=== PATIENT | female | born 1945 | race Caucasian/White ===

== ENCOUNTER 2024-08-22 21:35 | Inpatient (IN) | payer OTHER, SELFPAY ==
[2024-08-22] VITALS (12 sets, daily range): BP systolic 86–120; BP diastolic 46–70; BMI 21.5; BMI 22.1
[2024-08-22 18:27] LABS: INR 1.98
[2024-08-22 18:38] LABS: ALT (SGPT) 17 U/L (0-35); AST (SGOT) 29 U/L (14-36); Albumin 2.5 g/dl (3.5-5.0); Alkaline Phosphatase 81 U/L (38-126); Blood Urea Nitrogen 75 mg/dl (7-17); Calcium 7.9 mg/dl (8.4-10.2); Carbon Dioxide 13 mmol/L (22-30); Chloride 111 mmol/L (98-107); Estimated Creatinine Clearance 14 ml/min; Glucose 114 mg/dl (70-99); Sodium 138 mmol/L (135-145); Total Bilirubin 0.7 mg/dl (0.2-1.3); Total Protein 5.6 g/dl (6.3-8.2); eGFR 19.08
[2024-08-22 18:39] LABS: % Basophils 0.6 % (0-2); % Immature Granulocytes 6.6 % (0-0.5); % Lymphocytes 5.2 % (20.5-51.1); % Monocytes 4.6 % (1.7-9.3); Absolute Basophils 0.2 10^3/uL (0-0.2); Absolute Immature Granulocytes 1.7 10^3/uL (0-0.05); Absolute Lymphocytes 1.4 10^3/uL (1.2-3.4); Absolute Monocytes 1.2 10^3/uL (0.1-0.6); Absolute Neutrophils 21.3 10^3/uL (1.4-6.5); Hematocrit 27.6 % (37.0-47.0); Hemoglobin 8.5 g/dL (12.0-16.0); Mean Corp Hgb Conc. 30.8 g/dL (33.0-37.0); Mean Corpuscular Hgb 25.1 pg (27.0-31.0); Mean Corpuscular Volume 81.7 fL (81.0-99.0); Mean Platelet Volume 10.9 fL (7.4-10.4); Nucleated Red Blood Cells % 0 %; Platelet Count 599 10^3/uL (130-400); Red Blood Cell Count 3.38 10^6/uL (4.20-5.40); Red Cell Dist. Width 17.7 % (11.5-14.5); White Blood Cell Count 25.7 10^3/uL (4.8-10.8)
[2024-08-22 18:41] LABS: Magnesium 1.4 mg/dl (1.6-2.3)
[2024-08-22] MEDS: NSS 500 IV ×2 (19:14→20:06)
[2024-08-22] MEDS: CARDIZEM 125 IV (19:23)
[2024-08-22 19:56] LABS: Creatine Phosphokinase 25 U/L (30-135)
[2024-08-22] MEDS: ZOSYN 100 IV (20:06)
[2024-08-22 20:10] LABS: Lactic Acid 1.7 mmol/L (0.7-2.0)
--- NOTE | 2024-08-22 20:13 | ED.GENMED ---
History of Present Illness
General
Chief Complaint: Heart Rate Problem
Source: patient and family
Time Seen by Provider: 08/22/24 18:09
History of Present Illness
History of Present Illness:
78-year-old female who presents after she fell at home. Daughter states that she had been in [place] and recently has been in [facility] for extended period of time. Patient was told at some point she did have atrial fibrillation but did not
have any follow-up or nothing else was done because they told her that she converted out of it. She is unsure if she has had any other episodes as she otherwise feels well. Today she fell and daughter found her on the floor. Patient does admit
she has been coughing for some time. No obvious fevers. No hemoptysis. Patient states that her walker just fell over and she lost her balance and fell. Denies any injuries or pain. Denies shortness of breath. Does feel her heart fluttering at
times.
Past History
Past History
ED Past Medical History: Arrthythmia (Remote history reported but no follow-up) and HTN
Phy Exam
Physical Exam
Physical Exam:
CONSTITUTIONAL Patient alert and oriented to person, place and time. Well-appearing. Vital signs reviewed.
HEAD atraumatic, normocephalic.
EYES eyelids normal to inspection, Extraocular muscles intact, Conjunctiva normal, Sclera normal.
NECK normal range of motion, Trachea midline, no jugular venous distention. No midline tenderness
RESPIRATORY CHEST No respiratory distress noted, Chest expansion equal, Bilateral breath sounds clear.
CARDIOVASCULAR irregularly irregular and tachycardic. At times on telemetry monitoring heart rate goes to 160s but down to 100 abruptly but remains in atrial fibrillation.
ABDOMEN abdomen nontender, Bowel sounds normal. No distention.
BACK normal inspection, no obvious deformities
UPPER EXTREMITY range of motion normal, Motor strength normal, no cyanosis, no edema.
LOWER EXTREMITY range of motion normal, Motor strength normal, no cyanosis, no edema.
NEURO Speech normal, No focal motor deficits, Irene coma scale 15, Memory normal, Cranial Nerves intact to screening exam.
SKIN skin warm, dry, and normal in color.
Course
Orders/Labs/Results
Orders:
Orders
08/22/24 17:53
Electrocardiogram (*1) Urgent
Reason for Study: Atrial Fibrillation
EKG- Treatment ONCE
08/22/24 18:06
Complete Blood Count/With Diff Urgent
Comprehensive Metabolic Panel Urgent
Creatine Phosphokinase Urgent
Comment: ADDON
Magnesium Urgent
Comment: ADD ON
PT/INR [Prothrombin Time] Urgent
TSH Reflex To Free T4 Urgent
08/22/24 18:25
CT Head W/o Iv Contrast Urgent
Comment:
Reason For Exam: fall
0.9% Sodium Chloride 500 ml [Nss] 500 ml IV BOLUS
CR Chest - 2 Views Urgent
Comment:
Reason For Exam: cough
08/22/24 18:26
Add On- LAB Urgent
Tests Added?: TSH, Mg
Diltiazem 125 mg/125 ml Nss [Cardizem] 125 mg in 125 ml IV NOW
Initial dose in mg/hr, then titrate:: 5
Titrate to keep:: Heart rate 80-100 bpm
Titrate by mg/hr:: 5 mg/hr
Frequency of titrations (minutes):: 15
Maximum dose in mg/hr:: 15
Diltiazem HCl [Cardizem] 10 mg IV NOW STA
08/22/24 19:24
Add On- LAB Urgent
Tests Added?: cpk, Mg
Straight cath- Treatment ONCE
Urinalysis Reflex To Culture Urgent
08/22/24 19:26
0.9% Sodium Chloride 500 ml [Nss] 500 ml IV BOLUS
08/22/24 19:47
Piperacillin/Tazo 4.5 Gram [Zosyn] 4.5 gram in 100 ml IV NOW
Vancomycin [Vancocin] 1,500 mg 0.9% Sodium Chloride 500 ml [Nss] 500 ml IV NOW
08/22/24 19:50
Lactic Acid Q4H
Comment: CANCEL 2nd LACTIC ACID IF 1st LACTIC ACID IS LESS THAN 2
Blood Culture Q30M
JENA Source: Blood/Venous
Specimen Description:
Blood Culture Q30M
JENA Source: Blood/Venous
Specimen Description:
08/22/24 23:30
Lactic Acid Q4H
Comment: CANCEL 2nd LACTIC ACID IF 1st LACTIC ACID IS LESS THAN 2
Abnormal Lab Results
08/22/24
18:06
WBC 25.7 H 10^3/uL
(4.8-10.8)
RBC 3.38 L 10^6/uL
(4.20-5.40)
Hgb 8.5 L g/dL
(12.0-16.0)
Hct 27.6 L %
(37.0-47.0)
MCH 25.1 L pg
(27.0-31.0)
MCHC 30.8 L g/dL
(33.0-37.0)
RDW 17.7 H %
(11.5-14.5)
Plt Count 599 H 10^3/uL
(130-400)
MPV 10.9 H fL
(7.4-10.4)
Abs Immat Gran (auto) 1.7 H 10^3/uL
(0-0.05)
Absolute Neuts (auto) 21.3 H 10^3/uL
(1.4-6.5)
Absolute Monos (auto) 1.2 H 10^3/uL
(0.1-0.6)
Immature Gran % 6.6 H %
(0-0.5)
Neutrophils % 83.0 H %
(42.2-75.2)
Lymphocytes % 5.2 L %
(20.5-51.1)
PT 23.0 H Sec
(11.4-14.6)
Chloride 111 H mmol/L
(98-107)
Carbon Dioxide 13 L* mmol/L
(22-30)
BUN 75 H mg/dl
(7-17)
Creatinine 2.5 H mg/dL
(0.6-1.0)
Glucose 114 H mg/dl
(70-99)
Calcium 7.9 L mg/dl
(8.4-10.2)
Magnesium 1.4 L mg/dl
(1.6-2.3)
Creatine Kinase 25 L U/L
(30-135)
Total Protein 5.6 L g/dl
(6.3-8.2)
Albumin 2.5 L g/dl
(3.5-5.0)
08/22/24 18:06
08/22/24 18:06
Vital Signs
Initial and Last Documented VS:
Initial Vital Signs
Pulse Resp BP Pulse Ox
109 19 108/57 98
08/22/24 17:55 08/22/24 17:55 08/22/24 17:55 08/22/24 17:55
Last Documented Vital Signs
Temp Pulse Resp BP Pulse Ox
98.2 F 115 24 98/56 95
08/22/24 17:57 08/22/24 19:19 08/22/24 19:19 08/22/24 19:19 08/22/24 19:19
MDM/Problems Addressed
Differential Diagnosis Includes:
Fall, intracranial hemorrhage, skull fracture, electrolyte imbalance, UTI, anemia, A-fib
MDM/Problems Addressed:
Acute metabolic acidosis, acute atrial fibrillation with RVR, acute kidney injury, acute pneumonia, sepsis, hypomagnesemia, hypovolemia
*Radiology
Radiology exam reviewed: preliminary read by ED provider (Pneumonia)
*Pulse Oximetry
Patient hypoxic: no
*EKG
Interpreted by ED Provider?: Yes
Interpretation: abnormal
Rate: tachycardiac
Rhythm: a-fib
Ischemia: non-specific ST changes
*Production Staff Worker Interpretation
Rate: tachycardiac
Interpretation: abnormal
Rhythm: a-fib
*Critical Care Note
Total Time (30-74mins, 75-104mins- exclusive of procedures): 45 minutes
Data Reviewed
Source: patient and family
Prescriptions/Medications Considered But Not Given:
Consider vasopressors but continue fluids for now
Patient Management
Discussion with other providers: Hospitalist
Escalation/DeEscalation of care consider admission/obs:
78-year-old female with fall but noted to have cough and rapid A-fib. Reports that she was told in the past she had A-fib but it had resolved quickly and they did not have any follow-up. She has been in [facility] for some months and recently
moved home alone for the last couple weeks. She is on a diuretic. Creatinine noted but no old evaluations here at the hospital. Suspect she is profoundly hypovolemic. IV fluids ordered. Will slowly attempt to control rate and hope that IV
fluids also help. Chest x-ray shows pneumonia and patient is notably coughing. IV antibiotics ordered. Suspect acidosis related to infection and hypovolemia. May need anticoagulation but patient does fall frequently and this needs to be
considered
ED Attending Note
-
Portions of this chart may have been created with voice recognition software.� Occasional wrong word or��sound alike� substitutions may have occurred due to the inherent limitations of voice recognition software.
Discharge Plan
Departure
Patient Disposition: Admit
Date of Disposition: 08/22/24
Time of Disposition: 20:14
Admit to: IMU
Presentation/result/management discussed w/ accepting MD/DO: Hospitalist
Discharge Problem:
Metabolic acidosis, Pneumonia, Weakness, Anemia, Acute kidney injury, Volume depletion, Atrial fibrillation with RVR, Sepsis
Prescriptions:
No Action
metoprolol tartrate [Lopressor] 100 mg Tablet
100 mg PO BID
pantoprazole [Protonix] 20 mg Tablet,Delayed Release (Dr/Ec)
20 mg PO DAILY
hydrochlorothiazide 25 mg Tablet
25 mg PO DAILY
lisinopril 40 mg Tablet
40 mg PO DAILY
cholecalciferol (vitamin D3) [Vitamin D3] 25 mcg (1,000 unit) Tablet
25 mcg PO DAILY
Interventions
Interventions:
*Risk Screen - Suicide Last Done: 08/22/24 17:57
*General Assessment Last Done: 08/22/24 17:57
*Neglect/Abuse Screening Last Done: 08/22/24 17:57
*ED- Fall Risk Assessment Last Done: 08/22/24 17:57
*ED COVID-19 Vaccine History Last Done: 08/22/24 17:57
ED- Cardiac Assessment Last Done: 08/22/24 17:57
ED- Pulmonary Assessment Last Done: 08/22/24 17:57
Discharge Date and Time
Print Language: BOLIVIAN
--- NOTE | 2024-08-22 21:00 | HPS.HSE ---
Family Physician
-
Family Physician:
Chief Complaint
-
Fall at home
History of Present Illness
Patient is a 78y F with PMH significant for hypertension and possible isolated / remote A-Fib who presents to ED complaining of fall at home. Patient states that she was most recently hospitalized at [place] and then spent prolonged
rehabilitation stay at [facility] and then [facility]. She was discharged to home about 1 week ago and states that she has been feeling fairly well. Patient does complain of palpitations/ racing heartbeats for about 6 weeks or so. She
denies any lightheadedness / dizziness. She denies chest pain / pressure. Patient states that she would take a deep breath and then palpitations would cease.
She has also had a hacking, non-productive cough for about 6 weeks. No shortness of breath.
Patient reports that she has been drinking a lot of water; however, her appetite has been poor.
Today she was walking with her walker and her walker 'tilted' and she fell to the floor. She denies any lightheadedness, dizziness or other prodrome. She denies striking her head and denies any LOC.
Her [id number] assessed her following the fall and noted that she had a fast / racing pulse. They presented to the ED for further evaluation.
Patient was noted to be in A-Fib with rapid ventricular response with rates into the 170s at times. She was started on IV diltiazem in the ED.
At the time of my examination in the ED, patient is resting comfortably. She continues to report palpitations; although, her current pulse is in the 80s-90s.
Medical History
Past Medical History
Past Medical History: Reports Other
Additional Past Medical History:
Hypertension
GERD
Past Surgical History: Reports Other
Additional Past Surgical History:
x 2
Social History
Tobacco: Former Smoker (Quit smoking about 10 years ago. > 40 pack years total use.)
Alcohol: Occasional
Family History
Family History: Not pertinent
Allergies / Home Medications
Allergies reflects when Allergies were last updated in [employer].
Home Medications with original date entered in [employer]
Allergy/Medication List:
Allergies
Allergy/AdvReac Type Severity Reaction Status Date / Time
No Known Allergies Allergy Verified 08/22/24 18:04
Home Medications
cholecalciferol (vitamin D3) 25 mcg (1,000 unit) tablet (Vitamin D3) 25 mcg PO DAILY 08/22/24
hydrochlorothiazide 25 mg tablet 25 mg PO DAILY 08/22/24
lisinopril 40 mg tablet 40 mg PO DAILY 08/22/24
metoprolol tartrate 100 mg tablet (Lopressor) 100 mg PO BID 08/22/24
pantoprazole 20 mg tablet,delayed release (Protonix) 20 mg PO DAILY 08/22/24
Review of Systems
-
History Source: Patient
A 12 point ROS was completed and negative except as noted: Yes
Constitutional: Denies Fever, Fatigue or Chills
EENT: Denies Sore Throat
Respiratory: Reports Cough; Denies Hemoptysis or Trouble Breathing
Cardiac: Reports Palpitations; Denies Chest Pain, Diaphoresis or Syncope
Abdomen/GI: Reports Anorexia; Denies Abdominal Pain, Nausea, Vomiting or Diarrhea
: Denies Dysuria, Frequency or Flank Pain
Musculoskeletal: Denies Joint Pain or Edema
Neurological: Denies Dizzy, Headache, Weakness or Numbness
Psych: Denies Depression or Anxiety
Physical Exam
Vital Signs
Vital Signs
Temp Pulse Resp BP Pulse Ox
98.2 F 104 29 104/67 96
08/22/24 17:57 08/22/24 20:45 08/22/24 20:45 08/22/24 20:30 08/22/24 20:45
Physical Exam
General: Other (78y F in no acute distress.)
HEENT: Other (Dry MM. Neck supple. )
Respiratory: Other (Coarse breath sounds over the L base about 1/2 up. No wheezing.)
Cardiac: S1/S2 and Irregular Rhythm; No Murmur
GI: Soft, Non Tender, Non Distended and Normal Bowel Sounds
Musculoskeletal: No Clubbing, No Cyanosis and No Edema
Neuro: AO x 3
Laboratory Results
-
08/22/24 18:06
08/22/24 18:06
Laboratory Results
PT 23.0 Sec (11.4-14.6) H 08/22/24 18:06
INR 1.98 08/22/24 18:06
Lactic Acid 1.7 mmol/L (0.7-2.0) 08/22/24 19:50
Total Bilirubin 0.7 mg/dl (0.2-1.3) 08/22/24 18:06
AST 29 U/L (14-36) 08/22/24 18:06
ALT 17 U/L (0-35) 08/22/24 18:06
Alkaline Phosphatase 81 U/L (38-126) 08/22/24 18:06
Impression/Plan
-
A/P: Patient is a 78y F with PMH significant for hypertension who presents to ED complaining of fall at home and palpitations.
LLL Pneumonia
Sepsis secondary to the above
- Admit for further evaluation and treatment.
- Patient presents with tachycardia, tachypnea and leukocytosis with CXR showing dense consolidation at the posterior L base.
- Abx for coverage of CAP.
- Supportive care including IVFs, etc.
- Follow for clinical improvement.
Atrial Fibrillation with Rapid Ventricular Response
- Perhaps some remote and isolated history of A-Fib, but not a chronic issue per patient.
- Continue IV diltiazem and titrate as needed for rate control.
- Continue metoprolol, but change dose / frequency to allow for titration given low BP.
- Cardiology evaluation in the AM for additional recommendations.
- Will hold on anticoagulation initially given fall / gait issues, evaluation of anemia, etc.
Fall at Home
- Patient describes a mechanical fall without injury, head trauma, etc.
- PT / OT evaluations.
ELIGIO / CKD
Non-Gapped Metabolic Acidosis
- SCr = 2.5 with no prior values available for comparison.
- Hold ELIEL inhibitor acutely.
- IVFs as noted above.
- Follow for changes in renal function over the next 24-48 hours.
- Try to obtain [facility] for [facility].
Normocytic Anemia
- ? acuity, etiology, etc. Patient denies any gross bleeding.
- Not on any anticoagulation.
- Check iron studies, B12, etc. Heme test stools.
- Follow for changes in H&H - especially with volume expansion.
- Obtain prior records for review as noted above.
Benign Hypertension
- BP presently on the lower side - likely due to tachyarrhythmia, sepsis, etc.
- IVF support as noted above.
- Hold lisinopril, HCT, etc.
- Continue metoprolol withholding parameters / divided doses.
DVT Prophylaxis: Subcut Heparin
Code Status: DNR
[2024-08-22] MEDS: VANCOCIN 530 MG IV (21:22)
[2024-08-22] MEDS: LOPRESSOR PO (22:30)
[2024-08-22] MEDS: NSS 1000 IV (22:33)
[2024-08-22 23:05] LABS: Iron < 20 ug/dl (37-170)
[2024-08-22 23:07] LABS: Troponin I 0.149 ng/ml
[2024-08-22 23:09] LABS: Total Iron Binding Capacity 232 ug/dl (265-497)
[2024-08-22] MEDS: ROBITUSSIN 100 MG PO (23:55)
--- NOTE | 2024-08-22 23:59 | PTCARENOTE ---
pt admitted from ED, pt is AAOx3, ALUTIIQ, able to make needs known. a-fib on the monitor. cardizem gtt infusing at 5ml/hr. HR can go from 70s-120s. with any activity patient's HR goes up to 150s but does go back down with rest. 95% RA. moist
non-productive frequent cough. notified covering [employer]LLOW[employer]- PRN robitussin given per JUN. SOB on exertion and tachypneic at times. PW in place d/t patient not being able to get up or move much in bed. IV fluids infusing. troponin level drawn per order-
0.149- notified covering [employer]LLOW[employer]- no new orders at this time. no chest pain reported. pt oriented to new room, call boykin within reach, care ongoing.
[2024-08-23] VITALS (25 sets, daily range): BP systolic 96–140; BP diastolic 50–122; PULSE 81–85; O2SAT 96; BMI 21.8
[2024-08-23 00:18] LABS: Folate 11.3 ng/ml (2.76-20); Vitamin B12 337 pg/ml (239-931)
--- NOTE | 2024-08-23 02:10 | PTCARENOTE ---
pt oxygen dropping during the night. 87% RA, 4L NC applied now 94%. pt starting with wheezes, PRN neb treatment given per JUN. care ongoing.
--- NOTE | 2024-08-23 03:24 | PTCARENOTE ---
pt incontinent of loose BM, full bed change and bath given. heme test stools ordered- result heme negative at this time, documented on work list. purwick that was placed by the ED removed at this time d/t patient being incontinent of loose stools.
pt agreeable to using bedpan. care ongoing.
[2024-08-23] MEDS: LOPRESSOR PO (03:29)
[2024-08-23] MEDS: VENTOLIN NEBULES 2.5 MG INH (03:36)
[2024-08-23 03:39] LABS: Hematocrit 27.3 % (37.0-47.0); Hemoglobin 8.3 g/dL (12.0-16.0); Mean Corp Hgb Conc. 30.4 g/dL (33.0-37.0); Mean Corpuscular Hgb 25.1 pg (27.0-31.0); Mean Corpuscular Volume 82.5 fL (81.0-99.0); Mean Platelet Volume 11.1 fL (7.4-10.4); Platelet Count 544 10^3/uL (130-400); Red Blood Cell Count 3.31 10^6/uL (4.20-5.40); Red Cell Dist. Width 17.4 % (11.5-14.5)
[2024-08-23 04:03] LABS: Blood Urea Nitrogen 58 mg/dl (7-17); Calcium 6.6 mg/dl (8.4-10.2); Carbon Dioxide 12 mmol/L (22-30); Chloride 119 mmol/L (98-107); Estimated Creatinine Clearance 21 ml/min; Glucose 86 mg/dl (70-99); Potassium 3.5 mmol/L (3.5-5.1); Sodium 143 mmol/L (135-145); eGFR 30.32
[2024-08-23 04:14] LABS: Troponin I 0.159 ng/ml
[2024-08-23 04:39] LABS: Urine Albumin 2+ (Neg - Trace); Urine Bilirubin Negative (Negative); Urine Character Slightly Cloudy (Clear); Urine Color Yellow; Urine Glucose Negative (Negative); Urine Ketone Negative (Negative); Urine Leukocyte 2+ (Negative); Urine Nitrite Positive (Negative); Urine Occult Blood 2+ (Negative); Urine Specific Gravity 1.015 (<1.030); Urine Urobilinogen 1+ (Neg - 1+)
[2024-08-23] MEDS: CALCIUM GLUCONATE 100 IV (04:57)
[2024-08-23] MEDS: SODIUM BICARBONATE 50 MEQ IV (04:57)
--- NOTE | 2024-08-23 05:16 | PTCARENOTE ---
pt with critical lab values this AM- CO2-12, Ca-6.6. mag level drawn in the ED also noted to be low 1.4. notified covering CONSULTING MANAGER- amp of bicarb, IV Ca rider and IV mag rider ordered and hung per JUN.
[2024-08-23] MEDS: MAGNESIUM SULFATE 100 IV (05:46)
[2024-08-23] MEDS: ROCEPHIN 1000 MG IV (05:47)
[2024-08-23] MEDS: STERILE WATER FOR INJECTION 10 ML IV (05:47)
[2024-08-23 05:57] LABS: Urine Mucus Many
[2024-08-23 05:58] LABS: Urine Amorphous Seen; Urine Bacteria Many (Negative); Urine Squamous Cell >30 /LPF (Few); Urine White Cell >100 /HPF (0-5)
[2024-08-23 06:11] LABS: Urine Red Blood Cell >100 /HPF (0-2); Urine Urothelial Cell >30 /LPF (FEW)
--- NOTE | 2024-08-23 08:21 | W.PN.HOSP.TC ---
Today's Communication/Plan
-
Continue antibiotics, AV glo blockers, encourage PO intake
Assessment / Plan
Assessment / Plan
Physical Exam
General: Not in acute distress
HEENT: Normocephalic
Respiratory:Rhonchi bilaterally
Cardiac: S1/S2 and Irregular Rhythm
GI: Soft, Non Tender, Non Distended and Normal Bowel Sounds
Musculoskeletal: No Cyanosis and No Edema. LEFT CHEST WALL TENDER TO PALPATION.
Neuro: AAO x 3
Assessment/Plan
78y F with PMH significant for hypertension and possible isolated / remote A-Fib who presented complaining of fall at home. Patient states that she was most recently hospitalized at [place] and then spent prolonged rehabilitation stay at [facility] and then [facility]. She was discharged to home about 1 week prior to presentation and stated that she had been feeling fairly well. Patient does complain of palpitations/ racing heartbeats for about 6 weeks or so. She denied any
lightheadedness / dizziness. She denied chest pain / pressure. Patient stated that she would take a deep breath and then palpitations would cease.
She has also had a hacking, non-productive cough for about 6 weeks. No shortness of breath.
Patient reports that she has been drinking a lot of water; however, her appetite had been poor.
On the day of presentation, she was walking with her walker and her walker 'tilted' and she fell to the floor. She denied any lightheadedness, dizziness or other prodrome. She denied striking her head and denied any loss of consciousness.
Her [id number] assessed her following the fall and noted that she had a fast / racing pulse.
Patient was noted to be in A-Fib with rapid ventricular response with rates into the 170s at times. She was started on IV diltiazem in the ED.
LLL Pneumonia
Sepsis secondary to the above
Hacking, non-productive cough for about 6 weeks prior to presentation
- Patient presented with tachycardia, tachypnea and leukocytosis with CXR showing dense consolidation at the posterior left base.
- Antibiotic coverage for community acquired pneumonia
- Supportive care including IVFs, etc.
- Follow for clinical improvement.
Atrial Tachycardia (NOT A-Fib as per cardiology)
- Continue IV diltiazem and titrate as needed for rate control.
- Continue metoprolol
- Cardiology evaluation
Fall at Home
- Patient described a mechanical fall without injury, head trauma, etc.
- PT / OT evaluations.
ELIGIO / CKD
Metabolic Acidosis
- Labs are improving
- SCr = 2.5 --->1.7 with no prior values available for comparison.
- Hold LEIEL inhibitor acutely.
- IVFs as noted above.
- Follow for changes in renal function over the next 24-48 hours.
- Bladder scans protocol to monitor for urinary retention
- Try to obtain prior records from [facility] for comparison.
Normocytic Anemia
- ? acuity, etiology, etc. Patient denies any gross bleeding.
- Not on any anticoagulation.
- Iron studies suggest iron deficiency anemia -- but avoid IV iron for now given infection (started oral iron instead), B12 within normal range at 337.
- Heme test stools.
- Follow for changes in H&H - especially with volume expansion.
- Obtain prior records for review as noted above.
Benign Hypertension
- BP presently on the lower side - likely due to tachyarrhythmia, sepsis, etc.
- IVF support as noted above.
- Hold lisinopril, HCT, etc.
- Continue metoprolol withholding parameters / divided doses.
DVT Prophylaxis: Subcutaneous Heparin
Speech & Swallow: As of 08/23/24: Completed swallow eval - recommending to continue regular and thins. Thanks!
Code Status: DNR
Anticipated Discharge: 24 - 48 hours
Subjective/Interval History
-
Date of Service: August 23, 2024
Patient was seen and examined. She denied any new symptoms or complaints, except for chest wall pain tender on palpation or with moving.
Objective Data
-
Labs:
Laboratory Results
08/23/24
03:15
WBC 23.0 H
Hgb 8.3 L
Hct 27.3 L
Plt Count 544 H
Sodium 143
Potassium 3.5
Chloride 119 H
Carbon Dioxide 12 L*
BUN 58 H
Creatinine 1.7 H
Glucose 86
Calcium 6.6 L*
Vital Signs:
Vital Signs
Temp Pulse Resp BP Pulse Ox
98.1 F 93 28 106/57 96
08/23/24 07:21 08/23/24 06:00 08/23/24 06:00 08/23/24 06:00 08/23/24 06:00
I&O
08/22/24 08/23/24 08/24/24
06:59 06:59 06:59
Intake Total 200 / 200
Output Total 200 / 200
Balance 0 / 0
[2024-08-23] MEDS: VIBRAMYCIN 100 MG PO ×2 (08:35→19:27)
[2024-08-23] MEDS: HEPARIN 5000 UNITS SC ×2 (08:36→19:27)
[2024-08-23] MEDS: PROTONIX 20 MG PO (08:36)
[2024-08-23] MEDS: KCL 20 MEQ PO (08:38)
--- NOTE | 2024-08-23 08:58 | PTCARENOTE ---
Patient urinated a moderate amount of yellow urine. Per MD order, patient bladder scanned for 191. Dr. Bee made aware. Care ongoing.
--- NOTE | 2024-08-23 09:50 | PTOTSP ---
Speech Therapy Evaluation:
Pt presents with functional oropharyngeal swallow at bedside. No s/sx of aspiration across trials. No significant predisposing risk factors of dysphagia, however CXR with LLL PNA, O2 requirement increased from baseline, and WBC elevated. No hx of
PNA, dysphagia, or ST services.
Recommend:
1. Continue regular solids and thin liquids
2. Medications as tolerated
3. General aspiration and reflux precautions
4. MANAGER LSW to follow to monitor tolerance of diet and determine if pt would benefit from instrumental assessment (pending imaging), likely brief
--- NOTE | 2024-08-23 10:04 | CON.CAR ---
Addendum entered and electronically signed by Trisha Ngo MD 08/23/24 16:34:
I saw and examined the patient.
The DIVER PUMPER's note was reviewed and I agree with the note.
Comment: 78 yo female with HTN, and GERD, who presents to the ER from home after a mechanical fall. She has had recurrent falls. We are called for concern of atrial fibrillation. However EKG shows sinus rhythm with salvos of SVT. Telemetry shows
sinus with salvos of SVT. Currently she feels well without complaint. On exam she is without complaint. Lungs are clear to auscultation bilaterally regular rate and rhythm with a normal S1-S2 no murmur exams were appreciated, no lower extremity
edema appreciated.EKG as above. Overall, arrhythmia consistent with atrial tachycardia over atrial fibrillation. No indication for anticoagulation at this time. Transition diltiazem drip to diltiazem. Rates are controlled. Ongoing treatment for
pneumonia as you are. Creatinine is improving.
Patient can call the office to arrange [place] at [phone] if interested in transitioning care to our office. Otherwise the cardiology service will sign off and return as needed.
Original Note:
Consultation
Consultation Request
Date/Time Consultation Requested: 08/22/24 10:20p
Date/Time Consultation Performed: 08/23/24 9:45a
Requesting Provider: Dr. Caldwell
Performing Provider: RADHA Garcia for Dr. Ngo
Reason for Consultation: rapid Afib
Medical History
-
Chief Complaint: fall at home
History of Present Illness:
Mrs. Irving is a 78 yo female with HTN, and GERD, who presents to the ER from home after a mechanical fall. There was concern for rapid A-fib with rates in 170s in the ER started on IV diltiazem drip. She is admitted to the hospitalist service we
are consulted for rapid A-fib. EKG 08/22/2024 with sinus complexes and salvos of atrial tachycardia 113 bpm. She admits to feeling palpitations at times and thinks maybe she had Afib once before. 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
lives in [place] and would like to follow with cardiology here at [facility].
Past Medical History
Past Medical History: GERD and HTN
Past Surgical History: (x2)
Social History
Tobacco: Former Smoker (Quit 10 years ago, > 40 pack years)
Living: With Family
Family History
Family History: Reviewed & Not Pertinent
Allergies / Home Medications
Allergy/AdvReac Type Severity Reaction Status Date / Time
No Known Allergies Allergy Verified 08/22/24 18:04
�Medication �Instructions �Recorded �Confirmed �Type
cholecalciferol (vitamin D3) 25 25 mcg PO DAILY Supplement 08/22/24 08/22/24 History
mcg (1,000 unit) tablet (Vitamin
D3)
hydrochlorothiazide 25 mg tablet 25 mg PO DAILY Fluid 08/22/24 08/22/24 History
Retention/Swelling
lisinopril 40 mg tablet 40 mg PO DAILY Blood Pressure 08/22/24 08/22/24 History
metoprolol tartrate 100 mg tablet 100 mg PO BID Blood Pressure 08/22/24 08/22/24 History
(Lopressor)
pantoprazole 20 mg tablet,delayed 20 mg PO DAILY Gastrointestinal 08/22/24 08/22/24 History
release (Protonix) Issue
Review of Systems
-
History Source: Patient
All other systems: Negative unless noted
Physical Exam
Vital Signs
Temp Pulse Resp BP Pulse Ox
98.1 F 93 28 106/57 96
08/23/24 07:21 08/23/24 06:00 08/23/24 06:00 08/23/24 06:00 08/23/24 06:00
Lab Results
08/23/24 03:15
Troponin I 0.159 ng/ml H* 08/23/24 03:15
Physical Exam
General: Well Developed and No Apparent Distress
HEENT: Normocephalic and Moist Mucous Membranes
Respiratory: Rhonchi (diffuse b/l )
Cardiac: S1/S2 and Irregular Rhythm
Breast: Deferred by me
GI: Soft, Non Tender and Normal Bowel Sounds
Rectal: Deferred by Provider
Genito-urinary: No Costovertebral Tender
Musculoskeletal: No Clubbing, No Cyanosis and No Edema
Skin: Warm and Dry
Neuro: AO x 3
Psych: Calm
Impression / Plan
-
Atrial tachycardia - rapid rates, sinus rhythm/tachycardia on tele.
- Atrial tachycardia salvos on EKG with ST.
- no Afib, continue to monitor on tele.
- check EKG and echo.
- continue IV Diltiazem and Lopressor.
Possible remote Afib episode - per notes, will request records from her truck rental manager Dr. Altman.
- [id number] VASc score is 4 (female, age, HTN), with fall history unsure is she is a safe OAC candidate. now on SC Heparin.
- monitor on tele.
HTN - stable on Lopressor and IV Diltiazem, continue.
- monitor.
Non-ischemic myocardial injury - acute in the setting of rapid Afib and ELIGIO.
- Troponin trend 0.149, 0.159, trend to peak.
- check echo.
GERD - stable, continue PPI.
PNA LLL - sepsis, on ABX per hospitalist.
Fall at home - recurrent, mechanical.
- lives alone and uses a walker.
- multiple falls recently.
ELIGIO - creatinine 2.5 on admit.
- down to 1.7 today.
- unknown baseline creatinine.
Data Reviewed
-
EKG: Tracing Personally Visualized and interpreted (EKG 08/22/2024 with sinus complexes and salvos of atrial tachycardia 113 bpm)
Radiology: Report Reviewed by me (CXR: Posterior medial left lower lobe pneumonia.)
Labs: Labs Reviewed by me
Old Records: Reviewed
[2024-08-23] MEDS: NSS 1000 IV ×2 (10:19→21:03)
[2024-08-23] MEDS: LOPRESSOR 50 MG PO ×3 (10:20→20:05)
[2024-08-23] MEDS: ROBITUSSIN 100 MG PO ×2 (10:22→16:05)
[2024-08-23 10:59] LABS: ALT (SGPT) 19 U/L (0-35); AST (SGOT) 48 U/L (14-36); Albumin 2.8 g/dl (3.5-5.0); Alkaline Phosphatase 105 U/L (38-126); Blood Urea Nitrogen 56 mg/dl (7-17); Calcium 8.3 mg/dl (8.4-10.2); Carbon Dioxide 16 mmol/L (22-30); Chloride 113 mmol/L (98-107); Estimated Creatinine Clearance 23 ml/min; Glucose 143 mg/dl (70-99); Magnesium 1.7 mg/dl (1.6-2.3); Potassium 3.9 mmol/L (3.5-5.1); Sodium 142 mmol/L (135-145); Total Bilirubin 0.6 mg/dl (0.2-1.3)
[2024-08-23] MEDS: CARDIZEM CD 120 MG PO (13:42)
[2024-08-23] MEDS: FEOSOL 325 MG PO (16:05)
--- NOTE | 2024-08-23 16:08 | CM ---
Patient with Dx LLL Pneumonia, Sepsis, Atrial tachycardia, fall at home. O2 2L. Receiving IV Abx, Cardizem gtt, IVF. PT/OT; assist of 2, unsteady, recommend skilled rehab.
Met with patient, son Raz, MARK, and son Rogerio;
the patient resides alone in a first floor condo with 1 step at entrance.
She was A/O however has not been doing well for the past week, mostly lying on the couch, not eating or drinking.
She was discharged from [facility] a [facility] where she stayed for 11 months in LTC under Medicaid.
The patient did not want to be in SNF any longer so sons allowed her to return home.
Sons are arare patient fell once recently. They report she has fallen 5x in the last 2 years, fracturing her hip, spine and wrist.
Sons had [facility] caregiver [facility].
DME - RW
SNF- [facility] x2
PCP - Socorro Villalba
Pharmacy - [facility]
Spoke with [facility] Wells; the patient was discharged from SNF with referral to [facility], however she was unable to be seen as she has not seen her PCP for over 1 year.
Spoke with sons about short term rehab. Christian Crandall prefers a referral to [facility] They are not sure what to do about the LTC plans as the patient has no funds to pay for assisted living or hire an agency caregiver.
SNF referral placed.
Plan follow up SNF referral.
--- NOTE | 2024-08-23 16:34 | PTCARENOTE ---
Patient AOx3. Patient is anxious and [place]. Patient on RA with SpO2 greater than 92%. Coarse lung sounds and exp wheeze. Non-productive moist cough. PRN cough medicine given per JUN. Patient converted back to NSR and cardizem gtt turned off. BP
stable. Frequent urination. PVR's completed and charted per MD order. Patient tolerating regular diet. IVF running per order. Assist x1 with RW when OOB. Call boykin within reach, bed in lowest position, and bed of wheels locked.
[2024-08-23 17:56] LABS: Troponin I 0.129 ng/ml
[2024-08-23 20:15] LABS: Blood Urea Nitrogen 46 mg/dl (7-17); Calcium 8.2 mg/dl (8.4-10.2); Carbon Dioxide 16 mmol/L (22-30); Chloride 114 mmol/L (98-107); Estimated Creatinine Clearance 26 ml/min; Glucose 118 mg/dl (70-99); Potassium 3.9 mmol/L (3.5-5.1); Sodium 143 mmol/L (135-145); eGFR 38.27
--- NOTE | 2024-08-23 21:30 | PTCARENOTE ---
Pt received at beginning of shift resting in bed. AAOx3 but can be forgetful. [place]. VSS. SA on CM irregular. POX RA 93%. Tachypneic up to 41 does not appear to be in any acute distress. Speaks full sentences. When asleep pox down to 80's. Placed on
2L NC POX 96%. 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 Urinary frequency. Agreeable to use purewick overnight. Placed and working. Pt attempted to have BM without result. Right upper arm with red ecchymosis. Skin pale. Rest of assessment as documented. Pt
turns self in bed. Call boykin remains within reach. Will continue to monitor.
[2024-08-24] VITALS (23 sets, daily range): BP systolic 104–162; BP diastolic 47–97; BMI 22.7
[2024-08-24 03:50] LABS: % Basophils 0.6 % (0-2); % Eosinophils 1.2 % (0-6); % Immature Granulocytes 4.6 % (0-0.5); % Lymphocytes 10.6 % (20.5-51.1); % Monocytes 5.5 % (1.7-9.3); % Neutrophils 77.5 % (42.2-75.2); Absolute Basophils 0.1 10^3/uL (0-0.2); Absolute Eosinophils 0.2 10^3/uL (0-0.7); Absolute Immature Granulocytes 0.7 10^3/uL (0-0.05); Absolute Lymphocytes 1.6 10^3/uL (1.2-3.4); Absolute Monocytes 0.9 10^3/uL (0.1-0.6); Hematocrit 25.7 % (37.0-47.0); Mean Corp Hgb Conc. 31.1 g/dL (33.0-37.0); Mean Corpuscular Hgb 25.6 pg (27.0-31.0); Mean Corpuscular Volume 82.1 fL (81.0-99.0); Mean Platelet Volume 11.2 fL (7.4-10.4); Nucleated Red Blood Cells % 0 %; Platelet Count 531 10^3/uL (130-400); Red Blood Cell Count 3.13 10^6/uL (4.20-5.40); Red Cell Dist. Width 17.6 % (11.5-14.5); White Blood Cell Count 15.5 10^3/uL (4.8-10.8)
[2024-08-24 04:14] LABS: ALT (SGPT) 19 U/L (0-35); AST (SGOT) 41 U/L (14-36); Albumin 2.4 g/dl (3.5-5.0); Alkaline Phosphatase 87 U/L (38-126); Blood Urea Nitrogen 41 mg/dl (7-17); Calcium 8.1 mg/dl (8.4-10.2); Carbon Dioxide 17 mmol/L (22-30); Chloride 116 mmol/L (98-107); Estimated Creatinine Clearance 30 ml/min; Glucose 97 mg/dl (70-99); Potassium 3.8 mmol/L (3.5-5.1); Sodium 143 mmol/L (135-145); Total Bilirubin 0.4 mg/dl (0.2-1.3); Total Protein 5.4 g/dl (6.3-8.2); eGFR 46.05
[2024-08-24] MEDS: ROCEPHIN 1000 MG IV (05:14)
[2024-08-24] MEDS: LOPRESSOR 50 MG PO ×4 (05:14→21:43)
[2024-08-24] MEDS: STERILE WATER FOR INJECTION 10 ML IV (05:14)
[2024-08-24] MEDS: ROBITUSSIN 100 MG PO ×2 (05:49→10:53)
[2024-08-24] MEDS: VENTOLIN NEBULES 2.5 MG INH (06:16)
[2024-08-24] MEDS: TESSALON PERLES 100 MG PO ×2 (06:36→16:24)
--- NOTE | 2024-08-24 06:39 | PTCARENOTE ---
Pt woke up this am with intense cough, spastic, audible wheezing and sob. RT called to give pt breathing treatment. Treatment given. Robitussin given as ordered. Pt slightly better. Kenton GARCIA TT'd and made aware. Order entered for Tin Rodas
and pt received. Pt grossly incontinent large amount urine and moderate amount BM. Pt cleansed and changed. Currently resting comfortably. Call boykin remains within reach. Will continue to monitor.
[2024-08-24] MEDS: CARDIZEM CD 120 MG PO (08:02)
[2024-08-24] MEDS: PROTONIX 20 MG PO (08:02)
[2024-08-24] MEDS: VIBRAMYCIN 100 MG PO ×2 (08:02→21:43)
[2024-08-24] MEDS: HEPARIN 5000 UNITS SC ×2 (08:03→21:42)
[2024-08-24] MEDS: NSS 1000 IV (10:51)
--- NOTE | 2024-08-24 10:54 | W.PN.HOSP.TC ---
Today's Communication/Plan
-
Nebulizer ATC
Pulmonary consult IV steroid
IV Abx
Legionella test
Assessment / Plan
Assessment / Plan
Physical Exam
General: Not in acute distress
HEENT: Normocephalic
Respiratory:Rhonchi bilaterally, limited with some expiratory wheezes.
Cardiac: S1/S2 and Irregular Rhythm
GI: Soft, Non Tender, Non Distended and Normal Bowel Sounds
Musculoskeletal: No Cyanosis and No Edema.
Neuro: AAO to self and surroundings, she followed commands
Psych: anxious at times
Assessment/Plan
LLL Pneumonia
Sepsis secondary to the above
Hacking, non-productive cough for about 6 weeks prior to presentation
- Patient presented with tachycardia, tachypnea and leukocytosis with CXR showing dense consolidation at the posterior left base.
- Antibiotic coverage for community acquired pneumonia
- Supportive care including IVFs, etc.
- Follow for clinical improvement.
- Consult pulmonary
# hx of 1 PPD for years, quit 10 years ago
Suspect underlying COPD, she denies previous diagnosis and symptoms but reports taking inhalers/ seeing pulmonary in the past
Lung exam: some wheezes with limited air, will change to DuoNeb ATC, add IV steroid
Will consult pulmonary
Atrial Tachycardia (NOT A-Fib as per cardiology)
- stop IV diltiazem, change to oral Cardizem
repeat EKG today
- Continue metoprolol
- Cardiology evaluation appreciated
Fall at Home
- Patient described a mechanical fall without injury, head trauma, etc.
- PT / OT evaluations.
ELIGIO / CKD
Metabolic Acidosis
- Labs are improving
- SCr = 2.5 --->1.7 with no prior values available for comparison.
- Hold ELIEL inhibitor acutely.
- IVFs as noted above.
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
- Follow for changes in renal function over the next 24-48 hours.
- Bladder scans protocol to monitor for urinary retention
- Try to obtain prior records from [facility] for comparison.
Normocytic Anemia
- ? acuity, etiology, etc. Patient denies any gross bleeding.
- Not on any anticoagulation.
- Iron studies suggest iron deficiency anemia -- but avoid IV iron for now given infection (started oral iron instead), B12 within normal range at 337.
- Heme test stools.
- Follow for changes in H&H - especially with volume expansion.
- Obtain prior records for review as noted above.
Benign Hypertension
- BP presently on the lower side - likely due to tachyarrhythmia, sepsis, etc.
- IVF support as noted above.
- Hold lisinopril, HCT, etc.
- Continue metoprolol withholding parameters / divided doses.
DVT Prophylaxis: Subcutaneous Heparin
Speech & Swallow: As of 08/23/24: Completed swallow eval - recommending to continue regular and thins. Thanks!
Code Status: DNR
Total time spent to see the patient, examine the patient, review data and lab result, discuss treatment plan with the patient, nursing staff around 55 minutes
Anticipated Discharge: > 48 hours
Subjective/Interval History
-
Date of Service: August 24, 2024
Still cough with losse stools
Objective Data
-
Labs:
Laboratory Results
08/24/24
03:22
WBC 15.5 H
Hgb 8.0 L
Hct 25.7 L
Plt Count 531 H
Sodium 143
Potassium 3.8
Chloride 116 H
Carbon Dioxide 17 L
BUN 41 H
Creatinine 1.2 H
Glucose 97
Calcium 8.1 L
Total Bilirubin 0.4
AST 41 H
ALT 19
Alkaline Phosphatase 87
Vital Signs:
Vital Signs
Temp Pulse Resp BP Pulse Ox
97.5 F 104 20 104/91 94
08/24/24 07:50 08/24/24 09:14 08/24/24 09:00 08/24/24 09:14 08/24/24 09:00
I&O
08/23/24 08/24/24 08/25/24
06:59 06:59 06:59
Intake Total 200 / 200 2260 / 2260 480 / 480
Output Total 200 / 200 600 / 600
Balance 0 / 0 1660 / 1660 480 / 480
--- NOTE | 2024-08-24 11:01 | PTCARENOTE ---
Patient had a few minute episode of continuous coughing which led her to throw up a small parker thick amount. Patient denies feeling nauseous. Patient able to take Robitussin per MAR. Dr. España made aware. Care ongoing.
[2024-08-24] MEDS: DUONEB 3 ML INH ×3 (11:09→21:14)
[2024-08-24] MEDS: SOLU-MEDROL PF 40 MG IV (11:35)
--- NOTE | 2024-08-24 14:30 | CON.PUL ---
Consultation
Consultation Request
Date/Time Consultation Requested: 08/24/2024 - 1054
Date/Time Consultation Performed: 08/24/2024 - 1250
Requesting Provider: Dr. España
Performing Provider: Dr. Agosto
Reason for Consultation: Hypoxia/SOB/Pneumonia
Medical History
-
Chief Complaint: Found on floor
History of Present Illness:
78-year-old female with a past medical history of hypertension, vitamin D deficiency, and GERD who presents with being found down on the ground by her [id number]-wxr. Patient lives alone. When EMS arrived, her heart rate was 180 and she was
hypotensive to 70/40. Patient reportedly has a history of A-fib but is not on any medications. She had recently been hospitalized at [facility] and spent a prolonged rehabilitation stay at [facility] and then [facility]. She
says that once she got home from rehab that she became increasingly weak. She has been having racing heartbeat/palpitations for about 6 weeks or so. Denies any prior lightheadedness/dizziness. She was walking via her walker and then she tilted
and fell to the floor. She denies head trauma or loss of consciousness. Her adygzhou-pk-evq found her on the floor and noticed her fast heart rate. EKG here shows an atrial tachycardia. Her initial heart rate was as high as 176, she was afebrile
to 98.2 �F, respiratory rate 22, BP 98/64 and saturating 97% on room air. Labs showed leukocytosis to 25.7, Hb 8.5, serum bicarbonate level 13, creatinine 2.5, magnesium 1.4, iron saturation with total iron levels <20, although high ferritin levels
at 1160, CK20 5, troponin 0.149, vitamin B12 337, TSH 0.60, and urinalysis with >100 urine WBC, +2 leukocyte esterase and positive nitrites, although it was a dirty sample. Blood cultures collected. CXR showed a posteromedial left lower lobe
pneumonia. In the ER she was started on Cardizem drip, given Zosyn/vancomycin, and total of 1 L IVF with NS 0.9%. She was admitted to the IMU for further care and now pulmonary consulted for additional management/recommendations.
When I saw the patient, she was resting in bed in no acute distress, on 2 L/min nasal cannula saturating 95%. Heart rate 81, BP 132/70. She is not on home oxygen. She says she feels much better overall, although still coughing with clear mucus
production, and still hears some wheezing. She currently denies chest pain, [place], nausea, fevers or chills.
PMHx: Hypertension, GERD, suspected history of A-fib, former tobacco smoker
PSHx: x 2
Past Medical History
Past Medical History: Other (Above as per HPI)
Past Surgical History: Other (Above as per HPI)
Social History
Tobacco: Former Smoker (Quit approximately 10 years ago, with a >[id number] history)
Alcohol: Occasional
Drug: None
Personal: Single
Living: Alone
Family History
Family History: Reviewed & Not Pertinent
Allergies / Home Medications
Allergies
Allergy/AdvReac Type Severity Reaction Status Date / Time
No Known Allergies Allergy Verified 08/22/24 18:04
Home Medications
�Medication �Instructions �Recorded �Confirmed �Last Taken �Type
cholecalciferol (vitamin D3) 25 25 mcg PO DAILY Supplement 08/22/24 08/22/24 08/22/24 History
mcg (1,000 unit) tablet (Vitamin
D3)
hydrochlorothiazide 25 mg tablet 25 mg PO DAILY Fluid 08/22/24 08/22/24 08/22/24 History
Retention/Swelling
lisinopril 40 mg tablet 40 mg PO DAILY Blood Pressure 08/22/24 08/22/24 08/22/24 History
metoprolol tartrate 100 mg tablet 100 mg PO BID Blood Pressure 08/22/24 08/22/24 08/22/24 History
(Lopressor)
pantoprazole 20 mg tablet,delayed 20 mg PO DAILY Gastrointestinal 08/22/24 08/22/2408/22/25 History
release (Protonix) Issue
Review of Systems
-
History Source: Patient
All other systems: Negative unless noted
Vitals / Labs / Diagnostic Testing
Vital Signs
Temp Pulse Resp BP Pulse Ox
97.5 F 89 37 136/75 95
08/24/24 07:50 08/24/24 11:00 08/24/24 11:00 08/24/24 10:42 08/24/24 11:00
Lab Data
08/24/24 03:22
08/24/24 03:22
Microbiology
08/22/24 19:50 Blood/Venous Blood Culture - Preliminary
No Growth in 24 hours- Final report to follow
08/22/24 19:50 Blood/Venous Blood Culture - Preliminary
No Growth in 24 hours- Final report to follow
Diagnostic Testing:
Physical Exam
-
HEENT: Normocephalic and Anicteric
Cardiovascular: S1/S2 and Peripheral Edema (negative)
Respiratory: Wheeze (negative), Rales (Left base), Rhonchi (Left base) and Non-Labored Respirations
GI: Soft, Non Distended, Non Tender and Normal Bowel Sounds
Neurology: Awake, Alert and Tremors (negative)
Skin: Warm and Dry
General: Respiratory Distress (negative), Comfortable, Fever (negative) and Chills (negative)
Assessment
-
Assessment: 78-year-old female with a past medical history of hypertension, vitamin D deficiency, and GERD who presents with being found down on the ground by her dadiwigr-tz-rtd. Patient lives alone. When EMS arrived, her heart rate was 180 and
she was hypotensive to 70/40. Patient reportedly has a history of A-fib but is not on any medications. She had recently been hospitalized at [facility] and spent a prolonged rehabilitation stay at [facility] and [facility]. She says that once she got home from rehab that she became increasingly weak. She has been having racing heartbeat/palpitations for about 6 weeks or so. Denies any prior lightheadedness/dizziness. She was walking via her walker and then
she tilted and fell to the floor. She denies head trauma or loss of consciousness. Her weftodum-mv-ymj found her on the floor and noticed her fast heart rate. EKG here shows an atrial tachycardia. Her initial heart rate was as high as 176, she
was afebrile to 98.2 �F, respiratory rate 22, BP 98/64 and saturating 97% on room air. Labs showed leukocytosis to 25.7, Hb 8.5, serum bicarbonate level 13, creatinine 2.5, magnesium 1.4, iron saturation with total iron levels <20, although high
ferritin levels at 1160, CK20 5, troponin 0.149, vitamin B12 337, TSH 0.60, and urinalysis with >100 urine WBC, +2 leukocyte esterase and positive nitrites, although it was a dirty sample. Blood cultures collected. CXR showed a posteromedial left
lower lobe pneumonia. In the ER she was started on Cardizem drip, given Zosyn/vancomycin, and total of 1 L IVF with NS 0.9%. She was admitted to the IMU for further care and now pulmonary consulted for additional management/recommendations.
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
Impression:
#Left lower lobe pneumonia -suspect aspiration given that she was found on the floor
#Tachycardia due to atrial tachycardia (not due to A-fib as per cardiology)
#Acute respiratory failure with hypoxia due to pneumonia with hypoventilation/deconditioning
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
#Anemia with iron deficiency
#Leukocytosis
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
#Thrombocytosis, likely reactive
#ELIGIO
#Metabolic acidosis with preserved anion gap likely due to ELIGIO
#Elevated troponin to peaked at 0.16 on 08/23/2024
#Hypoalbuminemia
#Abnormal urinalysis however with >30 urine urothelial cells
#Former tobacco smoker
Plan:
- Patient found to have a left lower lobe pneumonia due to retrocardiac opacification seen in the posterior left base on CXR from 08/22/2024
- Suspect she may have aspirated given that she fell that same day; she may have even had this prior as she was having palpitations and racing heart for several weeks, possibly as a result of this pneumonia, but this is unclear
- I have no prior imaging to compare to assess chronicity
- Continue with ceftriaxone/Doxy s/p Vanco/Zosyn; would plan for total of 7 days antibiotics assuming she continues to clinically improve and remains afebrile for 2 days prior to stopping
- Continue to trend WBC and monitor for fevers
- Follow-up blood cultures (collected 08/22/2024 � NGTD), and urine culture (collected 08/23/2024 � NGTD); urine antigen for Legionella negative; check strep pneumoniae urine antigen
- Of note, she does have multiple right sided kidney stones & a suspected bladder stone, hence if she deteriorates then it's a possible source to consider and would consult urology in that case
- Her WBC is improving, hence believe that we do have source control
- Continue aspiration precautions; keep HOB >30-45�
- Maintain SpO2 >90-94% with supplemental O2 and wean as she tolerates
- She will need a home O2 assessment prior to discharge
- Although she says that she sometimes hears herself wheezing, I do not appreciate wheezing on exam today
- Continue DuoNebs QID with prn nebulized bronchodilators for breakthrough symptoms (not currently bronchospastic)
- Outpatient pulmonary follow-up will be arranged for full PFTs and symptom monitoring; will discharge home with prn albuterol and we can consider maintenance inhalers once I see her in office
- Maintain MAP >65
- Renally dose all medications/antibiotics
- Trend sCr and I/O, monitor UOP
- Trend serum HCO3 level
- Cardiology consulted and recs appreciated
- She currently is in normal sinus rhythm
- Continue with PO Lopressor + Cardizem
- Outpatient cardiology follow-up recommended
- Incentive spirometer encouraged q1hr while awake
- Replete electrolytes with K>4, Mg>2
- She will need PT/OT consult; fall precautions while hospitalized
- Trend H/H and transfuse if needed to keep Hb>7g/dL; keep plt>20k, unless there is concern for bleeding then keep plt>50k; platelet count should continue to improve to normal as ABx continue
- Maintain euglycemia with goal BG >100 and <180
- DVT ppx: HSQ
Code status: DNR/DNI
Pulmonary service will continue to follow along. I will arrange for outpatient pulmonary office follow-up.
Data:
CXR 08/22/2024: Posterior medial left lower lobe pneumonia. Recommend follow-up after conservative therapy to assess resolution.
Total time spent today was 58 minutes for this encounter. Time includes reviewing laboratory test/imaging results, reviewing pertinent medical records, obtaining and reviewing medical history, performing an appropriate exam, ordering medications,
tests and procedures. Time also includes documentation of this encounter, coordinating patient care and communicating with other healthcare professionals. Total time does not include separately billed tests performed on this date of service.
--- NOTE | 2024-08-24 15:50 | PTCARENOTE ---
Patient AOx3. Patient is anxious and [place]. Patient on 2L NC with SpO2 greater than 92%. Coarse lung sounds and exp wheeze. Productive moist cough. PRN cough medicine given per JUN. NSR with PAC's on monitor. BP stable. Frequent urination and soft
stools. Patient tolerating regular diet. Assist x1 with RW when OOB. Call boykin within reach, bed in lowest position, and bed of wheels locked.
[2024-08-25] VITALS (26 sets, daily range): BP systolic 117–168; BP diastolic 58–111; BMI 22.3
--- NOTE | 2024-08-25 00:15 | PTCARENOTE ---
Pt received at beginning of shift. AAOx3. [place] Able to make needs known. Using call boykin for all assistance. VSS. HR 80's-170's. SR/SA/intermittent ST. Irregular rate. Pt asymptomatic. Denies palpitations. Sleeping currently. POX 2L 93-97%. Pt
requested purewick for overnight and placed. No BM since beginning of shift. Rest of assessment as documented. Turns self in bed. Call boykin remains within reach. Will continue to monitor.
[2024-08-25] MEDS: TESSALON PERLES 100 MG PO (02:16)
[2024-08-25] MEDS: ROBITUSSIN 100 MG PO (02:57)
[2024-08-25] MEDS: VENTOLIN NEBULES 2.5 MG INH (03:05)
[2024-08-25] MEDS: LOPRESSOR 50 MG PO ×3 (05:05→20:03)
[2024-08-25] MEDS: STERILE WATER FOR INJECTION 10 ML IV (05:06)
[2024-08-25] MEDS: FLUSH (NSS) 2 FLUSH IV (05:06)
[2024-08-25] MEDS: ROCEPHIN 1000 MG IV (05:06)
[2024-08-25 05:46] LABS: ALT (SGPT) 22 U/L (0-35); AST (SGOT) 34 U/L (14-36); Albumin 2.6 g/dl (3.5-5.0); Alkaline Phosphatase 90 U/L (38-126); Blood Urea Nitrogen 27 mg/dl (7-17); Calcium 8.2 mg/dl (8.4-10.2); Carbon Dioxide 17 mmol/L (22-30); Chloride 115 mmol/L (98-107); Estimated Creatinine Clearance 40 ml/min; Glucose 117 mg/dl (70-99); Potassium 3.6 mmol/L (3.5-5.1); Sodium 144 mmol/L (135-145); Total Bilirubin 0.5 mg/dl (0.2-1.3); Total Protein 5.8 g/dl (6.3-8.2); eGFR > 60.00
[2024-08-25 05:47] LABS: Hematocrit 26.3 % (37.0-47.0); Hemoglobin 7.9 g/dL (12.0-16.0); Mean Corpuscular Hgb 24.8 pg (27.0-31.0); Mean Corpuscular Volume 82.4 fL (81.0-99.0); Mean Platelet Volume 10.8 fL (7.4-10.4); Platelet Count 579 10^3/uL (130-400); Red Blood Cell Count 3.19 10^6/uL (4.20-5.40); Red Cell Dist. Width 17.3 % (11.5-14.5); White Blood Cell Count 15.6 10^3/uL (4.8-10.8)
[2024-08-25] MEDS: DUONEB 3 ML INH ×3 (07:37→19:28)
[2024-08-25] MEDS: SOLU-MEDROL PF 20 MG IV ×2 (08:08→20:03)
[2024-08-25] MEDS: HEPARIN 5000 UNITS SC ×2 (08:09→20:04)
[2024-08-25] MEDS: VIBRAMYCIN 100 MG PO ×2 (08:09→20:03)
[2024-08-25] MEDS: PROTONIX 20 MG PO (08:09)
[2024-08-25] MEDS: CARDIZEM CD 120 MG PO ×2 (08:09→20:03)
--- NOTE | 2024-08-25 09:01 | W.PN.HOSP.TC ---
Today's Communication/Plan
-
Change to Cardizem BID
Decrease Duoneb to TID
Stop IV steroid
Can downgrade to tele/ med-surg
Assessment / Plan
Assessment / Plan
Physical Exam
General: Not in acute distress
HEENT: Normocephalic
Respiratory: Less rhonchi bilaterally, less expiratory wheezes.
Cardiac: S1/S2 and Irregular Rhythm
GI: Soft, Non Tender, Non Distended and Normal Bowel Sounds
Musculoskeletal: No Cyanosis and No Edema.
Neuro: AAO to self and surroundings, she followed commands
Psych: anxious at times
Assessment/Plan
LLL Pneumonia
Sepsis secondary to the above
Acute hypoxic respiratory failure
Hacking, non-productive cough for about 6 weeks prior to presentation
- Patient presented with tachycardia, tachypnea and leukocytosis with CXR showing dense consolidation at the posterior left base.
She looks better, she will likely need oxygen supplementation for some time
Repeat chest x ray, no worsening in LL pneumonia
c/w Rocephin and Doxy
Negative Legionella, streptococcal Ag
Negative blood culture
Appreciate pulmonary help
# hx of 1 PPD for years, quit 10 years ago
Suspect underlying COPD, pulmonary HTN
she denies previous diagnosis and symptoms but reported taking inhalers/ seeing pulmonary in the past
Changed to DuoNeb ATC, will reduce to TID, another day of IV steroid
# Multiple Atrial Tachycardia (NOT A-Fib as per cardiology)
- stopped IV diltiazem, changed to oral Cardizem, will increase to BID dose to better control HR & BP.
- Continue metoprolol
- Cardiology evaluation appreciated
Fall at Home
- Patient described a mechanical fall without injury, head trauma, etc.
d/w family. Pt stayed in Assisted living > 8 months, went home alone but got sick in a week. Will likely need SNF and not recommending living alone situation
- PT / OT evaluations.
ELIGIO / CKD
Metabolic Acidosis
- Labs are improving
- SCr = 2.5 --->1.7 with no prior values available for comparison.
- Hold ELIEL inhibitor acutely.
- IVFs as noted above.
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
- Follow for changes in renal function over the next 24-48 hours.
- Bladder scans protocol to monitor for urinary retention
- Try to obtain prior records from [facility] for comparison.
Normocytic Anemia
- Patient denies any gross bleeding.
- Not on any anticoagulation.
- Iron studies suggest iron deficiency anemia -- but avoid IV iron for now given infection (started oral iron instead), B12 within normal range at 337.
- Obtain prior records for review as noted above.
Benign Hypertension
Hard hearing
DVT Prophylaxis: Subcutaneous Heparin
Speech & Swallow: As of 08/23/24: Completed swallow eval - recommending to continue regular and thins. Thanks!
Code Status: DNR
Total time spent to see the patient, examine the patient, review data and lab result, discuss treatment plan with the patient, family, nursing staff around 55 minutes
Anticipated Discharge: > 48 hours
Subjective/Interval History
-
Date of Service: August 25, 2024
No abdominal pain
Denies SOB, chest pain
Objective Data
-
Labs:
Laboratory Results
08/25/24
04:59
WBC 15.6 H
Hgb 7.9 L
Hct 26.3 L
Plt Count 579 H
Sodium 144
Potassium 3.6
Chloride 115 H
Carbon Dioxide 17 L
BUN 27 H
Creatinine 0.9
Glucose 117 H
Calcium 8.2 L
Total Bilirubin 0.5
AST 34
ALT 22
Alkaline Phosphatase 90
Vital Signs:
Vital Signs
Temp Pulse Resp BP Pulse Ox
97.6 F 89 36 162/75 95
08/25/24 07:23 08/25/24 08:09 08/25/24 08:09 08/25/24 08:09 08/25/24 08:17
I&O
08/24/24 08/25/24 08/26/24
06:59 06:59 06:59
Intake Total 2260 / 2260 1960 / 1960
Output Total 600 / 600 200 / 200 200 / 200
Balance 1660 / 1660 1760 / 1760 -200 / -200
[2024-08-25 09:04] LABS: % Basophils 0.8 % (0-2); % Eosinophils 0.7 % (0-6); % Immature Granulocytes 5.9 % (0-0.5); % Lymphocytes 8.6 % (20.5-51.1); % Monocytes 4.7 % (1.7-9.3); % Neutrophils 79.3 % (42.2-75.2); Absolute Basophils 0.1 10^3/uL (0-0.2); Absolute Eosinophils 0.1 10^3/uL (0-0.7); Absolute Immature Granulocytes 0.9 10^3/uL (0-0.05); Absolute Lymphocytes 1.3 10^3/uL (1.2-3.4); Absolute Monocytes 0.7 10^3/uL (0.1-0.6); Absolute Neutrophils 12.4 10^3/uL (1.4-6.5); Nucleated Red Blood Cells % 0.1 %
--- NOTE | 2024-08-25 10:13 | PTCARENOTE ---
Patient out of bed to chair, heart rate atrial rhythm in the 120-130s, patient is symptomatic feeling her heart beating, Denying chest pain when asked. Pulse ox on room air 88%, tachypnea, dyspnea, crackles on left lower base. Pulse ox 94 on 2
liters via nasal cannula at this time. Patient is going down for chest xray. Consumed majority of breakfast. Discussed respiratory and cardiac status with Dr. España.
[2024-08-25] MEDS: DUONEB INH (11:07)
--- NOTE | 2024-08-25 16:40 | W.PN.PUL3 ---
Today's Communication / Plan
-
Antibiotics
Heart rate control with goal <1 100�110
Cardiology on board; continue with negatively chronotropic medications
Aspiration precautions
DuoNebs
Steroids, started by hospitalist, wean as she clinically improves
PT/OT with fall precautions
Outpatient pulmonary office follow-up for full PFTs and symptom management
Pulmonary service will continue to follow along � hopefully she can be ready to be discharged home in the next 1-2 days
Assessment
-
Assessment: 78-year-old female with a past medical history of hypertension, vitamin D deficiency, and GERD who presents with being found down on the ground by her [id number]. Patient lives alone. When EMS arrived, her heart rate was 180 and
she was hypotensive to 70/40. Patient reportedly has a history of A-fib but is not on any medications. She had recently been hospitalized at [facility] and spent a prolonged rehabilitation stay at [facility] (formerly [facility]) and then [facility]
[place]. She says that once she got home from rehab that she became increasingly weak. She has been having racing heartbeat/palpitations for about 6 weeks or so. Denies any prior lightheadedness/dizziness. She was walking via her walker and then
she tilted and fell to the floor. She denies head trauma or loss of consciousness. Her [id number] found her on the floor and noticed her fast heart rate. EKG here shows an atrial tachycardia. Her initial heart rate was as high as 176, she
was afebrile to 98.2 �F, respiratory rate 22, BP 98/64 and saturating 97% on room air. Labs showed leukocytosis to 25.7, Hb 8.5, serum bicarbonate level 13, creatinine 2.5, magnesium 1.4, iron saturation with total iron levels <20, although high
ferritin levels at 1160, CK20 5, troponin 0.149, vitamin B12 337, TSH 0.60, and urinalysis with >100 urine WBC, +2 leukocyte esterase and positive nitrites, although it was a dirty sample. Blood cultures collected. CXR showed a posteromedial left
lower lobe pneumonia. In the ER she was started on Cardizem drip, given Zosyn/vancomycin, and total of 1 L IVF with NS 0.9%. She was admitted to the IMU for further care and now pulmonary consulted for additional management/recommendations.
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
Impression:
#Left lower lobe pneumonia -suspect aspiration given that she was found on the floor
#Tachycardia due to atrial tachycardia (not due to A-fib as per cardiology)
#Acute respiratory failure with hypoxia due to pneumonia with hypoventilation/deconditioning in the setting of atrial arrhythmia
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
#Anemia with iron deficiency
#Leukocytosis
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
#Thrombocytosis, likely reactive
#ELIGIO
#Metabolic acidosis with preserved anion gap likely due to ELIGIO
#Elevated troponin to peaked at 0.16 on 08/23/2024
#Hypoalbuminemia
#Abnormal urinalysis however with >30 urine urothelial cells
#Former tobacco smoker
Plan:
- Patient found to have a left lower lobe pneumonia due to retrocardiac opacification seen in the posterior left base on CXR from 08/22/2024
- Suspect she may have aspirated given that she fell that same day; she may have even had this prior as she was having palpitations and racing heart for several weeks, possibly as a result of this pneumonia, but this is unclear
- I have no prior imaging to compare to assess chronicity
- Continue with ceftriaxone/Doxy s/p Vanco/Zosyn; would plan for total of 7 days antibiotics assuming she continues to clinically improve and remains afebrile for 2 days prior to stopping
- Continue to trend WBC and monitor for fevers
- Follow-up blood cultures (collected 08/22/2024 � NGTD), and urine culture (collected 08/23/2024 � NGTD); urine antigen for Legionella negative; strep pneumoniae urine antigen negative
- Of note, she does have multiple right sided kidney stones & a suspected bladder stone, hence if she deteriorates then it's a possible source to consider and would consult urology in that case
- Her WBC is stable, hence believe that we do have source control
- Continue aspiration precautions; keep HOB >30-45�
- Maintain SpO2 >90-94% with supplemental O2 and wean as she tolerates
- She will need a home O2 assessment prior to discharge
- Although she says that she sometimes hears herself wheezing, I do not appreciate wheezing on exam today or yesterday
- Systemic steroids were started by hospitalist team today (08/25) with Solu-Medrol 20 mg IV q12hr � wean as she clinically improves
- Continue DuoNebs QID with prn nebulized bronchodilators for breakthrough symptoms (not currently bronchospastic)
- Outpatient pulmonary follow-up will be arranged for full PFTs and symptom monitoring; will discharge home with prn albuterol and we can consider maintenance inhalers once I see her in office
- Maintain MAP >65
- Renally dose all medications/antibiotics
- Trend sCr and I/O, monitor UOP
- Trend serum HCO3 level
- Cardiology consulted and recs appreciated
- She currently is tachycardic and irregular (as of 08/25)
- Continue with PO Lopressor + Cardizem
- Outpatient cardiology follow-up recommended
- Incentive spirometer encouraged q1hr while awake
- Replete electrolytes with K>4, Mg>2
- She will need PT/OT consult; fall precautions while hospitalized
- Trend H/H and transfuse if needed to keep Hb>7g/dL; keep plt>20k, unless there is concern for bleeding then keep plt>50k; platelet count should continue to improve to normal as ABx continue
- Maintain euglycemia with goal BG >100 and <180
- DVT ppx: HSQ
Code status: DNR/DNI
Pulmonary service will continue to follow along. I will arrange for outpatient pulmonary office follow-up.
Data:
CXR 08/22/2024: Posterior medial left lower lobe pneumonia. Recommend follow-up after conservative therapy to assess resolution.
Total time spent today was 37 minutes for this encounter. Time includes reviewing laboratory test/imaging results, reviewing pertinent medical records, obtaining and reviewing medical history, performing an appropriate exam, ordering medications,
tests and procedures. Time also includes documentation of this encounter, coordinating patient care and communicating with other healthcare professionals. Total time does not include separately billed tests performed on this date of service.
Subjective Data
-
Date of Service:
Date of Service: August 25, 2024
Chief Complaint: Pulmonary Follow Up
Subjective:
Patient was seen and evaluated today at bedside. Still coughing with clear mucus coming up. She feels well overall. Heart rate 116, BP 143/81. She sitting in chair no acute distress. Denies chest pain, LUTHER, nausea, fevers chills. Eager to go
home soon.
Review of Systems
General: Other (Negative unless mentioned above)
Objective Data
Data Reviewed
Vital Signs / I&O / Oxygen:
Vital Signs
Temp Pulse Resp BP Pulse Ox
97.6 F 108 31 141/78 95
08/25/24 07:23 08/25/24 10:00 08/25/24 10:00 08/25/24 10:00 08/25/24 10:00
Intake and Output
08/24/24 08/25/24 08/26/24
06:59 06:59 06:59
Intake Total 2260 / 2260 1960 / 1960
Output Total 600 / 600 200 / 200 200 / 200
Balance 1660 / 1660 1760 / 1760 -200 / -200
SaO2 95
Nasal Cannula flow liters per 2
minute
Physical Exam
General: Respiratory Distress (negative) and Chills (negative)
HEENT: Normocephalic and Anicteric
Cardiovascular: Irregular Rhythm, Peripheral Edema (negative) and Other (Tachycardic)
Respiratory: Wheeze (negative), Crackles (Bibasilar (L >R)), Rhonchi (Bibasilar (L >R)) and Non-Labored Respirations
GI: Soft, Non Distended, Non Tender and Normal Bowel Sounds
Neurology: AO x 3 and Tremors (negative)
Skin: Warm, Dry, Cyanosis (negative) and Jaundice (negative)
Labs/Micro/Reports
Lab Data
08/25/24 04:59
08/25/24 04:59
Microbiology
08/25/24 04:59 Urine Streptococcus pneumoniae Antigen (M - Final
Negative for Streptococcus pneumoniae antigen.
A negative result does not exclude infection with
Streptococcus pneumoniae. Clinical correlation is
recommended.
08/22/24 19:50 Blood/Venous Blood Culture - Preliminary
No Growth in 48 hours- Final report to follow
08/22/24 19:50 Blood/Venous Blood Culture - Preliminary
No Growth in 48 hours- Final report to follow
08/24/24 12:28 Urine Legionella Urinary Antigen - Final
Negative for Legionella pneumophila Serogroup 1 antigen.
A negative result does not rule out the possiblity of
Legionella infection due to other serogroups or species of
Legionella. Clinical correlation is recommended.
08/23/24 02:57 Urine Urine Culture - Final
No Significant Growth
[2024-08-25] MEDS: FEOSOL 325 MG PO (16:54)
[2024-08-26] VITALS (21 sets, daily range): BP systolic 123–159; BP diastolic 60–95; PULSE 90–103; O2SAT 95–96; BMI 22.2
--- NOTE | 2024-08-26 00:32 | PTCARENOTE ---
assumed care of patient. pt is AAOx3, EEK, can be forgetful at times. on 2L NC 96%. pt able to use BSCx1 assist before getting back to bed. pt patient request asking to use purwick at night. pt aware of risks for uti, advantages of getting OOB, pt
verbalized understanding but still wants purwick in place. able to turn self in bed without issues. able to take pills without issues. using call boykin appropriately. care ongoing.
[2024-08-26 04:45] LABS: Hematocrit 26.7 % (37.0-47.0); Hemoglobin 8.1 g/dL (12.0-16.0); Mean Corp Hgb Conc. 30.3 g/dL (33.0-37.0); Mean Corpuscular Hgb 25.1 pg (27.0-31.0); Mean Corpuscular Volume 82.7 fL (81.0-99.0); Mean Platelet Volume 11.2 fL (7.4-10.4); Platelet Count 613 10^3/uL (130-400); Red Blood Cell Count 3.23 10^6/uL (4.20-5.40); Red Cell Dist. Width 17.4 % (11.5-14.5); White Blood Cell Count 18.2 10^3/uL (4.8-10.8)
[2024-08-26 04:56] LABS: Blood Urea Nitrogen 21 mg/dl (7-17); Calcium 8.1 mg/dl (8.4-10.2); Carbon Dioxide 19 mmol/L (22-30); Chloride 111 mmol/L (98-107); Estimated Creatinine Clearance 45 ml/min; Glucose 152 mg/dl (70-99); Potassium 3.8 mmol/L (3.5-5.1); Sodium 142 mmol/L (135-145); eGFR > 60.00
[2024-08-26] MEDS: ROCEPHIN 1000 MG IV (05:03)
[2024-08-26] MEDS: STERILE WATER FOR INJECTION 10 ML IV (05:03)
[2024-08-26] MEDS: LOPRESSOR 50 MG PO (07:59)
[2024-08-26] MEDS: PROTONIX 20 MG PO (07:59)
[2024-08-26] MEDS: VIBRAMYCIN 100 MG PO (07:59)
[2024-08-26] MEDS: HEPARIN 5000 UNITS SC (07:59)
[2024-08-26] MEDS: CARDIZEM CD 120 MG PO (07:59)
[2024-08-26] MEDS: SOLU-MEDROL PF 20 MG IV (08:00)
[2024-08-26] MEDS: DUONEB 3 ML INH ×2 (08:15→14:16)
--- NOTE | 2024-08-26 08:25 | W.PN.HOSP.TC ---
Today's Communication/Plan
-
Discharge today
Assessment / Plan
Assessment / Plan
Physical Exam
General: Not in acute distress
HEENT: Normocephalic
Respiratory: Less rhonchi bilaterally, less expiratory wheezes.
Cardiac: S1/S2 and Irregular Rhythm
GI: Soft, Non Tender, Non Distended and Normal Bowel Sounds
Musculoskeletal: No Cyanosis and No Edema.
Neuro: AAO to self and surroundings, she followed commands
Psych: anxious at times
Assessment/Plan
LLL Pneumonia
Sepsis secondary to Pneumonia
Acute hypoxic respiratory failure due to pneumonia with hypoventilation/deconditioning in the setting of atrial arrhythmia
Hacking, non-productive cough for about 6 weeks prior to presentation
- Patient presented with tachycardia, tachypnea and leukocytosis with CXR showing dense consolidation at the posterior left base.
She looks better, she will likely need oxygen supplementation for some time
Repeat chest x ray, no worsening in LL pneumonia
c/w Rocephin and Doxy --> complete total of 7 days of antibiotics: Cefpodoxime 200 mg BID and Doxycycline 100 mg BID for 2 more days
Negative Legionella, streptococcal Ag
Negative blood culture
Appreciate pulmonary help
Aspiration precautions
Discharge with as needed albuterol and can consider maintenance inhalers once patient is seen by outpatient pulmonary
No outpatient oxygen needed based on respiratory assessment
Incentive spirometer encouraged q1hr while awake
Leukocytosis -- suspected secondary to steroids and infection
# hx of 1 PPD for years, quit 10 years ago
Suspect underlying COPD, pulmonary HTN
she denies previous diagnosis and symptoms but reported taking inhalers/ seeing pulmonary in the past
Changed to DuoNeb ATC, will reduce to TID, another day of IV steroid
# Multiple Atrial Tachycardia (NOT A-Fib as per cardiology)
- stopped IV diltiazem, changed to oral Cardizem, will increase to BID dose to better control HR & BP.
- Continue metoprolol
- Cardiology evaluation appreciated
Fall at Home
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
- Patient described a mechanical fall without injury, head trauma, etc.
d/w family. Pt stayed in Assisted living > 8 months, went home alone but got sick in a week. Will likely need SNF and not recommending living alone situation
- PT / OT evaluations.
ELIGIO / CKD
Metabolic Acidosis with preserved anion gap likely due to ELIGIO
- Labs are improving
- SCr = 2.5 --->1.7 with no prior values available for comparison.
- Hold ELIEL inhibitor acutely.
- IVFs as noted above.
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
- Follow for changes in renal function over the next 24-48 hours.
- Bladder scans protocol to monitor for urinary retention
- Try to obtain prior records from [facility] for comparison.
Normocytic Anemia
Iron Deficiency Anemia
- Patient denies any gross bleeding.
- Not on any anticoagulation.
- Iron studies suggest iron deficiency anemia -- but avoid IV iron for now given infection (started oral iron instead), B12 within normal range at 337.
- Obtain prior records for review as noted above.
Thrombocytosis, likely reactive
Benign Hypertension
Hard hearing
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
Elevated troponin to peaked at 0.16 on 08/23/2024
Hypoalbuminemia
Abnormal urinalysis however with >30 urine urothelial cells
Former tobacco smoker
DVT Prophylaxis: Subcutaneous Heparin
Speech & Swallow: As of 08/23/24: Completed swallow eval - recommending to continue regular and thins.
Code Status: DNR
I called patient's son Raz and updated him; he is in agreement with discharging patient today.
More than 30 minutes spent in discharge including
Final examination of the patient
Summarizing hospital stay
Instructions for continuing care to all relevant caregivers
Preparation of discharge records, prescriptions, and referral forms
Total time spent (in minutes): 38
Anticipated Discharge: Today
Subjective/Interval History
-
Date of Service: August 26, 2024
Patient was seen and examined. She denied any chest pain, shortness of breath or any other new symptoms or complaints.
Objective Data
-
Labs:
Laboratory Results
08/26/24
04:03
WBC 18.2 H
Hgb 8.1 L
Hct 26.7 L
Plt Count 613 H
Sodium 142
Potassium 3.8
Chloride 111 H
Carbon Dioxide 19 L
BUN 21 H
Creatinine 0.8
Glucose 152 H
Calcium 8.1 L
Vital Signs:
Vital Signs
Temp Pulse Resp BP Pulse Ox
97.0 F 102 26 159/71 100
08/25/24 23:41 08/26/24 08:22 08/26/24 08:22 08/26/24 07:59 08/26/24 08:22
I&O
08/25/24 08/26/24 08/27/24
06:59 06:59 06:59
Intake Total 1960 / 1959
Output Total 200 / 200 450 / 450
Balance 1760 / 1760 -450 / -450
--- NOTE | 2024-08-26 10:30 | W.PN.PUL3 ---
Today's Communication / Plan
-
Continue DuoNebs 3 times a day-while in the hospital to aid with secretion clearance.
Discontinue Solu-Medrol
Home oxygen assessment today-order has been placed
Consider transition to oral antibiotics and complete 7 days
She will need outpatient pulmonary follow-up
Hopefully can be discharged soon
Assessment
-
Assessment: 78-year-old female with a past medical history of hypertension, vitamin D deficiency, and GERD who presents with being found down on the ground by her [id number]. Patient lives alone. When EMS arrived, her heart rate was 180 and
she was hypotensive to 70/40. Patient reportedly has a history of A-fib but is not on any medications. She had recently been hospitalized at [facility] and spent a prolonged rehabilitation stay at [facility] and then [facility]
[place]. She says that once she got home from rehab that she became increasingly weak. She has been having racing heartbeat/palpitations for about 6 weeks or so. Denies any prior lightheadedness/dizziness. She was walking via her walker and then
she tilted and fell to the floor. She denies head trauma or loss of consciousness. Her [id number] found her on the floor and noticed her fast heart rate. EKG here shows an atrial tachycardia. Her initial heart rate was as high as 176, she
was afebrile to 98.2 �F, respiratory rate 22, BP 98/64 and saturating 97% on room air. Labs showed leukocytosis to 25.7, Hb 8.5, serum bicarbonate level 13, creatinine 2.5, magnesium 1.4, iron saturation with total iron levels <20, although high
ferritin levels at 1160, CK20 5, troponin 0.149, vitamin B12 337, TSH 0.60, and urinalysis with >100 urine WBC, +2 leukocyte esterase and positive nitrites, although it was a dirty sample. Blood cultures collected. CXR showed a posteromedial left
lower lobe pneumonia. In the ER she was started on Cardizem drip, given Zosyn/vancomycin, and total of 1 L IVF with NS 0.9%. She was admitted to the IMU for further care and now pulmonary consulted for additional management/recommendations.
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
Impression:
#Left lower lobe pneumonia -suspect aspiration given that she was found on the floor
#Tachycardia due to atrial tachycardia (not due to A-fib as per cardiology)
#Acute respiratory failure with hypoxia due to pneumonia with hypoventilation/deconditioning in the setting of atrial arrhythmia
#Ambulatory dysfunction with fall at home [employer]TERN WHEEL [employer]
#Anemia with iron deficiency
#Leukocytosis
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
#Thrombocytosis, likely reactive
#ELIGIO
#Metabolic acidosis with preserved anion gap likely due to ELIGIO
#Elevated troponin to peaked at 0.16 on 08/23/2024
#Hypoalbuminemia
#Abnormal urinalysis however with >30 urine urothelial cells
#Former tobacco smoker
Plan:
Clinically improved-remains on 2 L nasal cannula.
Left side jail up crackles on exam.
Not bronchospastic 08/26/2024.
- Patient found to have a left lower lobe pneumonia due to retrocardiac opacification seen in the posterior left base on CXR from 08/22/2024
- Suspect she may have aspirated given that she fell that same day; she may have even had this prior as she was having palpitations and racing heart for several weeks, possibly as a result of this pneumonia, but this is unclear
- I have no prior imaging to compare to assess chronicity
- Continue with ceftriaxone/Doxy s/p Vanco/Zosyn; consider transition to oral antibiotics and complete total 7 days.
- Afebrile. Persistent leukocytosis partly from steroids.
- All cultures negative to date 08/26/2024
- Of note, she does have multiple right sided kidney stones & a suspected bladder stone, hence if she deteriorates then it's a possible source to consider and would consult urology in that case
- Her WBC is stable, hence believe that we do have source control
- Continue aspiration precautions; keep HOB >30-45�
- Maintain SpO2 >90-94% with supplemental O2 and wean as she tolerates-currently on 2 L.
- She will need a home O2 assessment prior to discharge-order has been placed.
- Not bronchospastic on exam-I will discontinue Solu-Medrol 08/26/2024, observe
- Continue DuoNebs TID with prn nebulized bronchodilators for breakthrough symptoms (not currently bronchospastic)-while in the hospital to aid with secretion clearance.
- Outpatient pulmonary follow-up will be arranged for full PFTs and symptom monitoring; will discharge home with prn albuterol and we can consider maintenance inhalers once I see her in office
- Cardiology following patient-remains slightly tachycardic.
- Continue with PO Lopressor + Cardizem
- Outpatient cardiology follow-up recommended
Echocardiogram 08/23/2024: Normal LVEF. Mild LVH. Stage II diastolic dysfunction. Increased filling pressures. Mild to moderate MR. Moderate pulmonary hypertension. Normal RV function
- Incentive spirometer encouraged q1hr while awake
- She will need PT/OT consult; fall precautions while hospitalized
- DVT ppx: HSQ
Code status: DNR/DNI
Pulmonary service will continue to follow along. I will arrange for outpatient pulmonary office follow-up.
Hopefully can discharge soon.
Data:
CXR 08/22/2024: Posterior medial left lower lobe pneumonia. Recommend follow-up after conservative therapy to assess resolution.
Subjective Data
-
Date of Service:
Date of Service: August 26, 2024
Chief Complaint: Pulmonary Follow Up (Pneumonia)
Review of Systems
Cardiopulmonary: Dyspnea (improved), Cough and Sputum Production
GI: Abdominal Pain (n) and Nausea (n)
Objective Data
Data Reviewed
Vital Signs / I&O / Oxygen:
Vital Signs
Temp Pulse Resp BP Pulse Ox
97.9 F 102 26 156/74 100
08/26/24 07:30 08/26/24 08:22 08/26/24 08:22 08/26/24 08:00 08/26/24 08:22
Intake and Output
08/25/24 08/26/24 08/27/24
06:59 06:59 06:59
Intake Total 1960 / 1960 480 / 480
Output Total 200 / 200 450 / 450
Balance 1760 / 1760 -450 / -450 480 / 480
SaO2 100
Nasal Cannula flow liters per 2
minute
Physical Exam
General: Respiratory Distress (negative) and Chills (negative)
HEENT: Normocephalic and Anicteric
Cardiovascular: Irregular Rhythm, Peripheral Edema (negative) and Other (Tachycardic)
Respiratory: Wheeze (negative), Crackles (Bibasilar (L >R)), Rhonchi (Bibasilar (L >R)) and Non-Labored Respirations
GI: Soft, Non Distended, Non Tender and Normal Bowel Sounds
Neurology: AO x 3 and Tremors (negative)
Skin: Warm, Dry, Cyanosis (negative) and Jaundice (negative)
Labs/Micro/Reports
Lab Data
08/26/24 04:03
08/26/24 04:03
Microbiology
08/22/24 19:50 Blood/Venous Blood Culture - Preliminary
No Growth in 72 hours- Final report to follow
08/22/24 19:50 Blood/Venous Blood Culture - Preliminary
No Growth in 72 hours- Final report to follow
08/25/24 04:59 Urine Streptococcus pneumoniae Antigen (M - Final
Negative for Streptococcus pneumoniae antigen.
A negative result does not exclude infection with
Streptococcus pneumoniae. Clinical correlation is
recommended.
08/24/24 12:28 Urine Legionella Urinary Antigen - Final
Negative for Legionella pneumophila Serogroup 1 antigen.
A negative result does not rule out the possiblity of
Legionella infection due to other serogroups or species of
Legionella. Clinical correlation is recommended.
08/23/24 02:57 Urine Urine Culture - Final
No Significant Growth
--- NOTE | 2024-08-26 11:44 | PTCARENOTE ---
Patient AOx3. Patient is anxious, [place], and forgetful at times. Bed alarm and chair alarm on and audible. Patient weaned to RA with SpO2 greater than 92%. Non-productive moist cough. Sinus arrhythmia with PAC's and atrial tachycardia on monitor. BP
stable. Patient tolerating regular diet. Assist x1 with RW when OOB. Call boykin within reach, bed in lowest position, and bed of wheels locked.
--- NOTE | 2024-08-26 12:57 | RESPNOTE ---
room air resting - 95%
room air walking - 93%
total distance walked - 100ft
no o2 needed during ambulation to maintain spo2
--- NOTE | 2024-08-26 12:59 | CM ---
Addendum entered by Susi Lyman RN 08/26/24 15:17:
Spoke with [facility]/[place] [facility];
request for [facility] SN[facility] is approved for 5 days, from 08/26 to 08/30, NR 08/30. Auth # [id number].
[facility]ute Care ambulance approved, from 08/26 - 08/28, 1 transport. Auth # [id number].
Spoke with patient's son Raz again;
provided update that CM met with his mother who agreed to go to [facility] today and son agrees with that plan. IMM completed. Patient and son aware that patient's insurance approved 5 days to start for her rehab at SNF.
[facility]; auth info provided. They are able to accept the patient today. Patient will be placed in unit C1, for report [phone], fax [phone].
Plan [facility] today by ambulance.
Original Note:
Patient with Dx LLL Pneumonia, Sepsis, Atrial tachycardia, fall at home. Room air. Receiving IV Abx. Seen by ST - kem diet.
Spoke with patient's son Raz; son states patient was agitated yelling at him and refusing to discuss SNF options.
Extensive conversation with son who says patient has some dementia. Son aware patient needs min assist for ADLs, min assist for mobility and she is unsteady on her feet today per PT.
Provided update that [facility] declined due to no available bed.
Reviewed SNF options including [facility] and other local SNFs with good NH ratings.
Met with patient and told her she would be unsafe to go home alone per PT/OT.
Provided update that [facility] does not have an available bed and she agrees to returning to [facility] for rehab.
Spoke with [facility]; she will speak to their SW about the circumstances of her d/c from [facility] and will review the referral.
Plan follow up with [facility] for acceptance.
--- NOTE | 2024-08-26 15:02 | W.DCSUMMARY ---
Discharge Summary
Discharge Data
Date of Admission: 08/22/24
Date of Discharge: 08/26/24
Total time spent discharging patient (in min): 38
-
Pending Results: Yes
Additional Pending Results:
Final results of blood cultures from hospitalization
Hospital Course
78 y/o female with past medical history of recent hospitalization at [facility], who presented after falling at home. Patient initially thought to have atrial fibrillation with rapid ventricular response and started on Cardizem Drip
-- cardiology was consulted and mentioned that patient had atrial tachycardia, but not atrial fibrillation. Patient was also found to have left lower lobe pneumonia and started on antibiotics. Patient was found to have acute kidney injury and
metabolic acidosis which improved with intravenous fluids. Patient had an echocardiogram which showed normal biventricular size and systolic function without regional wall motion abnormality; mild concentric left ventricular hypertrophy; stage II
diastolic dysfunction suggestive of abnormal relaxation and increased filling pressures; mild to moderate mitral regurgitation; and moderate pulmonary hypertension. Patient received a very course of intravenous steroids for her pulmonary status, and
pulmonary was consulted. Patient was saturating well on room air and did not need any oxygen on discharge.
Discharge Plan
-
Patient Disposition: Senior Care/SNF
Discharge Diagnosis/Procedures: Left Lower Lobe Pneumonia
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
Small Left Pleural Effusion
Sepsis secondary to Pneumonia
Acute hypoxic respiratory failure due to pneumonia with hypoventilation/deconditioning in the setting of atrial arrhythmia
Hacking, non-productive cough for about 6 weeks prior to presentation
Leukocytosis -- suspected secondary to steroids and infection
Atrial Tachycardia
Fall at Home
Ambulatory dysfunction with fall at home prior to arrival
Acute Kidney Injury (ELIGIO)/Chronic Kidney Disease
Metabolic Acidosis with preserved anion gap likely due to ELIGIO
Normocytic Anemia
Iron Deficiency Anemia
Thrombocytosis, likely reactive
Benign Hypertension
Hard of hearing
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
Elevated troponin to peaked at 0.16 on 08/23/2024
Hypoalbuminemia
Abnormal urinalysis however with >30 urine urothelial cells
Former tobacco smoker
Renal Ultrasound Results (as per radiologist's report):
'1. Asymmetric severe cortical atrophy of the left kidney, likely long-standing.
2. Intrarenal stones on the right side measuring up to 4 mm in diameter, without hydronephrosis.
3. Suspected stone within the urinary bladder.
4. Left ureteral jet was difficult to visualize, likely related to severe cortical atrophy of the left kidney.'
Condition: Good
Diet: Low Sodium and Other diet
Additional Diets: All liquid intake should be THIN liquids
Activity: With assistance
Driving Restrictions: No driving
Other Services: PT and OT
Activity Restrictions/Additional Instructions:
Follow aspiration precautions
Referrals:
Alexei Agosto MD [Active] - in two to four weeks (full PFTs on day of office visit)
Jimbo Ramirez MD [Active] - in one to two weeks (Atrophy of kidneys. Kidney stones.)
Socorro Villalba DO [Family Provider] -
Prescriptions:
New
diltiazem HCl 120 mg Capsule,Extended Release 24hr
120 mg PO BID Qty: 60 1RF
ferrous sulfate [FeroSul] 325 mg (65 mg iron) Tablet
325 mg PO Q48H Qty: 30 1RF
metoprolol tartrate 50 mg Tablet
50 mg PO BID Qty: 60 1RF
doxycycline hyclate 100 mg Capsule
100 mg PO Q12 2 Days Qty: 4 0RF
cefdinir 300 mg capsule
300 mg PO Q12H 2 Days Qty: 4 0RF
albuterol sulfate 2.5 mg /3 mL (0.083 %) Solution For Nebulization
2.5 mg inhalation R Q4HPRN PRN (Reason: SOB) Qty: 75 0RF
Continued
pantoprazole [Protonix] 20 mg Tablet,Delayed Release (Dr/Ec)
20 mg PO DAILY
cholecalciferol (vitamin D3) [Vitamin D3] 25 mcg (1,000 unit) Tablet
25 mcg PO DAILY
Discontinued
metoprolol tartrate [Lopressor] 100 mg Tablet
100 mg PO BID
hydrochlorothiazide 25 mg Tablet
25 mg PO DAILY
lisinopril 40 mg Tablet
40 mg PO DAILY
Discharge Orders:
Discharge Patient (As Directed); Ordered 08/26/24
Ordered By: Basilio Bee
Discharge Date and Time
Discharge Date/Time: 08/26/24 17:47
Print Language: BERMUDIAN
== END 2024-08-26 17:47 | DRG 871 ==
LOC: IMU 21:35
PROVIDERS: Internal Medicine; ADMITTING PHYSICIAN Hospitalist; ATTENDING PHYSICIAN Hospitalist; CONSULT PHYSICIAN Internal Medicine Critical Care Medicine; EMERGENCY PHYSICIAN Emergency Medicine; FAMILY PHYSICIAN Family Medicine; OTHER PHYSICIAN Internal Medicine Cardiovascular Disease
DX: A41.9 Sepsis, unspecified organism (principal); J18.9 Pneumonia, unspecified organism; J96.01 Acute respiratory failure with hypoxia; E87.20 Acidosis, unspecified; N17.9 Acute kidney failure, unspecified; I5A Non-ischemic myocardial injury (non-traumatic); I47.19 Other supraventricular tachycardia; J44.0 Chronic obstructive pulmonary disease with (acute) lower respiratory infection; R29.6 Repeated falls; E55.9 Vitamin D deficiency, unspecified; I12.9 Hypertensive chronic kidney disease with stage 1 through stage 4 chronic kidney disease, or unspecified chronic kidney disease; N18.9 Chronic kidney disease, unspecified; D50.9 Iron deficiency anemia, unspecified; N20.0 Calculus of kidney; I27.20 Pulmonary hypertension, unspecified; D75.839 Thrombocytosis, unspecified; J32.0 Chronic maxillary sinusitis; E88.09 Other disorders of plasma-protein metabolism, not elsewhere classified; E86.9 Volume depletion, unspecified; K21.9 Gastro-esophageal reflux disease without esophagitis; W01.0XXA Fall on same level from slipping, tripping and stumbling without subsequent striking against object, initial encounter; Y93.01 Activity, walking, marching and hiking; Y92.009 Unspecified place in unspecified non-institutional (private) residence as the place of occurrence of the external cause; Z66 Do not resuscitate; Z60.2 Problems related to living alone; Z87.891 Personal history of nicotine dependence
CPT/HCPCS: 70450; 71046; 76770; 80048; 80053; 81003; 81015; 82550; 82607; 82728; 82746; 83540; 83550; 83605; 83735; 84443; 84484; 85025; 85027; 85610; 87040; 87086; 87449; 87899; 92526; 92610; 93005; 93306; 94640; 96365; 96375; 97116; 97163; 97167; 97530; 97535; 99291

== ENCOUNTER → 2024-09-02 09:37 | Outpatient (REF) | payer OTHER, SELFPAY ==
[2024-09-02 10:54] LABS: Blood Urea Nitrogen 10 mg/dl (7-17); Calcium 7.9 mg/dl (8.4-10.2); Carbon Dioxide 26 mmol/L (22-30); Chloride 101 mmol/L (98-107); Glucose 98 mg/dl (70-99); HDL Cholesterol 23 mg/dl; Hematocrit 28.4 % (37.0-47.0); Hemoglobin 8.4 g/dL (12.0-16.0); LDL Cholesterol, Calculated 51 mg/dl; Magnesium 1.1 mg/dl (1.6-2.3); Mean Corp Hgb Conc. 29.6 g/dL (33.0-37.0); Mean Corpuscular Hgb 25.5 pg (27.0-31.0); Mean Corpuscular Volume 86.3 fL (81.0-99.0); Mean Platelet Volume 11.3 fL (7.4-10.4); Platelet Count 356 10^3/uL (130-400); Potassium 3.4 mmol/L (3.5-5.1); Red Blood Cell Count 3.29 10^6/uL (4.20-5.40); Sodium 137 mmol/L (135-145); Total Cholesterol 94 mg/dl (50-199); Triglyceride 102 mg/dl (10-149); Very Low Density Lipoprotein 20 mg/dl (0-30); White Blood Cell Count 16.2 10^3/uL (4.8-10.8); eGFR > 60.00
[2024-09-02 11:05] LABS: Free T4 1.47 ng/dl (0.78-2.19); Vitamin D, 25-OH*** 55.2 ng/mL (30-80)
[2024-09-02 12:37] LABS: % Basophils 0.7 % (0-2); % Eosinophils 0.7 % (0-6); % Immature Granulocytes 9.6 % (0-0.5); % Lymphocytes 11.5 % (20.5-51.1); % Monocytes 6.2 % (1.7-9.3); % Neutrophils 71.3 % (42.2-75.2); Absolute Basophils 0.1 10^3/uL (0-0.2); Absolute Eosinophils 0.1 10^3/uL (0-0.7); Absolute Immature Granulocytes 1.6 10^3/uL (0-0.05); Absolute Lymphocytes 1.9 10^3/uL (1.2-3.4); Absolute Neutrophils 11.6 10^3/uL (1.4-6.5); Nucleated Red Blood Cells % 0 %
== END ==
LOC: OLABN 09:37
PROVIDERS: ATTENDING PHYSICIAN Student in an Organized Health Care Education/Training Program
DX: R60.9 Edema, unspecified (principal); I10 Essential (primary) hypertension; E03.9 Hypothyroidism, unspecified; E78.5 Hyperlipidemia, unspecified; E55.9 Vitamin D deficiency, unspecified
CPT/HCPCS: 36415; 80048; 80061; 82306; 83735; 84439; 85025

== ENCOUNTER → 2024-09-12 09:31 | Outpatient (REF) | payer OTHER, SELFPAY ==
[2024-09-12 11:21] LABS: Blood Urea Nitrogen 10 mg/dl (7-17); Carbon Dioxide 24 mmol/L (22-30); Chloride 107 mmol/L (98-107); Glucose 89 mg/dl (70-99); Potassium 4.2 mmol/L (3.5-5.1); Sodium 139 mmol/L (135-145); eGFR > 60.00
== END ==
LOC: OLABN 09:31
PROVIDERS: ATTENDING PHYSICIAN Student in an Organized Health Care Education/Training Program
DX: R60.9 Edema, unspecified (principal)
CPT/HCPCS: 36415; 80048

== ENCOUNTER → 2024-09-27 09:46 | Outpatient (REF) | payer OTHER, SELFPAY ==
[2024-09-27 11:33] LABS: Hematocrit 30.6 % (37.0-47.0); Hemoglobin 9.1 g/dL (12.0-16.0); Mean Corp Hgb Conc. 29.7 g/dL (33.0-37.0); Mean Corpuscular Hgb 26.5 pg (27.0-31.0); Platelet Count 392 10^3/uL (130-400); Red Blood Cell Count 3.44 10^6/uL (4.20-5.40); Red Cell Dist. Width 19.6 % (11.5-14.5); White Blood Cell Count 11.2 10^3/uL (4.8-10.8)
[2024-09-27 11:52] LABS: Blood Urea Nitrogen 14 mg/dl (7-17); Calcium 9.3 mg/dl (8.4-10.2); Carbon Dioxide 23 mmol/L (22-30); Chloride 109 mmol/L (98-107); Glucose 100 mg/dl (70-99); Sodium 141 mmol/L (135-145); Uric Acid 8.4 mg/dl (2.5-6.2); eGFR > 60.00
== END ==
LOC: OLABN 09:46
PROVIDERS: ATTENDING PHYSICIAN Student in an Organized Health Care Education/Training Program
DX: R60.0 Localized edema (principal); D72.829 Elevated white blood cell count, unspecified; M10.9 Gout, unspecified
CPT/HCPCS: 36415; 80048; 84550; 85027

== ENCOUNTER → 2024-11-06 11:19 | Outpatient (REF) | payer OTHER, SELFPAY | LOC: HWRAD 11:19 | PROVIDERS: ATTENDING PHYSICIAN Surgery | DX: N20.0 Calculus of kidney (principal) | CPT/HCPCS: 74176 ==

== ENCOUNTER → 2025-02-19 09:56 | Outpatient (REF) | payer OTHER, SELFPAY ==
[2025-02-19 10:52] LABS: Hematocrit 36.4 % (37.0-47.0); Hemoglobin 11.2 g/dL (12.0-16.0); Mean Corp Hgb Conc. 30.8 g/dL (33.0-37.0); Mean Corpuscular Volume 88.6 fL (81.0-99.0); Nucleated Red Blood Cells % 0 %; Platelet Count 490 10^3/uL (130-400); Red Cell Dist. Width 17.8 % (11.5-14.5)
[2025-02-20 09:32] LABS: Urine Character Clear (Clear)
[2025-02-20 09:48] LABS: Urine Squamous Cell 16-20 /LPF (Few)
== END ==
LOC: OLABN 09:56
PROVIDERS: ATTENDING PHYSICIAN Student in an Organized Health Care Education/Training Program
DX: N18.32 Chronic kidney disease, stage 3b (principal)
CPT/HCPCS: 36415; 81003; 81015; 85025; 87086

== ENCOUNTER → 2025-03-29 13:30 | Outpatient (REF) | payer OTHER, SELFPAY ==
[2025-03-29 15:05] LABS: Uric Acid 7.6 mg/dl (2.5-6.2)
== END ==
LOC: OLABN 13:30
PROVIDERS: ATTENDING PHYSICIAN Student in an Organized Health Care Education/Training Program
DX: M10.071 Idiopathic gout, right ankle and foot (principal)
CPT/HCPCS: 84550